=== PATIENT | male | born 1960 | race Caucasian/White ===

== ENCOUNTER 2016-09-04 05:51 | Inpatient (IN) | payer OTHER, MEDICAID ==
[~2016-09-04] VITALS: Ht 177.8 cm; Wt 140.6 kg
[2016-09-04] MEDS ORDERED: CALC600T12 PO (06:15)
[2016-09-04] MEDS ORDERED: FISH1CAP16 PO (06:15)
[2016-09-04] MEDS ORDERED: CITA40TA22 PO (06:15)
[2016-09-04] MEDS ORDERED: ATOR40TA PO (06:15)
[2016-09-04] MEDS ORDERED: DIPH25TA39 PO (06:15)
[2016-09-04] MEDS ORDERED: PANT40TA4 PO (06:15)
[2016-09-04] MEDS ORDERED: BUPR300T52 PO (06:15)
[2016-09-04] MEDS ORDERED: METF10002 PO (06:15)
[2016-09-04] MEDS ORDERED: FENO145T20 PO (06:15)
[2016-09-04] MEDS ORDERED: ZOLP10TA2 PO (06:15)
[2016-09-04] MEDS ORDERED: ZIPR80CA2 PO (06:15)
[2016-09-04] MEDS ORDERED: VALS320T2 PO (06:15)
[2016-09-04 06:31] LABS: BASOPHILS % (AUTO) 0.7 % (0.0-2.0); DIFF TOTAL % 100 %; EOSINOPHILS # (AUTO) 0.4 /CMM (0.0-0.7); EOSINOPHILS % (AUTO) 5.3 % (0.0-6.0); HEMATOCRIT 32 % (39-51); HEMOGLOBIN 10.9 g/dL (13.5-17.5); LYMPHOCYTES # (AUTO) 1.7 /CMM (0.8-4.8); LYMPHOCYTES % (AUTO) 25.4 % (20.0-44.0); MEAN CORPUSCULAR HEMOGLOBIN 29 PG (26.0-33.0); MEAN CORPUSCULAR HGB CONC 34 g/dl (31.0-36.0); MEAN CORPUSCULAR VOLUME 84 fL (80-96); MONOCYTES # (AUTO) 0.7 /CMM (0.1-1.30); MONOCYTES % (AUTO) 9.9 % (2.0-12.0); NEUTROPHILS # (AUTO) 3.9 /CMM (1.8-8.9); NEUTROPHILS % (AUTO) 58.7 % (43.0-81.0); PLATELET COUNT (AUTO) 248 /CMM (150-450); RED BLOOD CELL COUNT(AUTO) 3.81 MIL/uL (4.5-6.0); WHITE BLOOD COUNT (AUTO) 6.7 K/uL (4.3-11.0)
[2016-09-04 06:40] LABS: ANION GAP 8 (5-14); CALCIUM, SERUM 9.5 mg/dL (8.5-10.1); CARBON DIOXIDE 30 mmol/L (21-32); CHLORIDE 97 mmol/L (98-107); CREATININE 1.2 mg/dL (0.6-1.3); GFR 62 mL/min (>60); GLUCOSE 134 mg/dL (74-106); POTASSIUM 4.6 mmol/L (3.5-5.1); SODIUM SERUM 130 mmol/L (136-145); UREA NITROGEN, BLOOD 21 mg/dL (7-18)
[2016-09-04 06:45] LABS: ALANINE AMINOTRANSFERASE 37 U/L (12-78); ALBUMIN 3.7 g/dL (3.4-5.0); ASPARTATE AMINOTRANSFERASE 15 U/L (15-37); BILIRUBIN,DIRECT 0.1 mg/dL (0.0-0.2); BILIRUBIN,TOTAL 0.3 mg/dL (0.2-1.0); INDIRECT BILIRUBIN 0.2 mg/dL (0.0-1.1); TOTAL PROTEIN, SERUM 6.5 g/dL (6.4-8.2)
[2016-09-04 06:47] LABS: TROPONIN I < 0.017 ng/mL (0.00-0.056)
[2016-09-04 06:49] LABS: INR 0.94 (0.87-1.13); PROTHROMBIN TIME 10.2 SECS (9.5-12.7)
[2016-09-04] MEDS ORDERED: ASPIRIN 325 MG TABLET ONE (07:27)
[2016-09-04] MEDS ORDERED: ASPIRIN 325 MG TABLET PO ONE (07:30)
[2016-09-04 08:00] VITALS: BP 138/71
[2016-09-04 08:30] VITALS: BP 138/71
[2016-09-04] MEDS ORDERED: INSULIN REGULAR, HUMAN 100 UNIT/ML 3 ML VIAL SQ PRN (11:30)
[2016-09-04] MEDS ORDERED: DIPHENHYDRAMINE HCL 12.5 MG/5 ML UDC PO PRN (11:30)
[2016-09-04] MEDS ORDERED: DEXTROSE 50%-WATER 50 ML DISP.SYRIN IV PRN (11:30)
[2016-09-04 11:37] LABS: CANNABINOID, URINE NEGATIVE (NEGATIVE); PHENCYCLIDINE SCREEN,URINE NEGATIVE (NEGATIVE)
[2016-09-04 11:42] LABS: THYROID STIMULATING HORMONE 1.494 uIU/mL (0.358-3.74)
[2016-09-04] MEDS ORDERED: diphenhydrAMINE HCL ELIX 25 MG/10 ML UDC PO PRN (12:00)
[2016-09-04 12:04] VITALS: BP 143/72
[2016-09-04] MEDS: CITALOPRAM HYDROBROMIDE 20 MG TABLET PO SCH (12:46)
[2016-09-04] MEDS: BLOOD SUGAR DIAGNOSTIC 1 EACH STRIP IN SCH ×3 (12:47→21:23)
[2016-09-04] MEDS: BUPROPION XL 150 MG TAB.ER.24 PO SCH (12:47)
[2016-09-04] MEDS: ENOXAPARIN SODIUM 40 MG/0.4 ML DISP.SYRIN SQ SCH (12:48)
[2016-09-04] MEDS: VALSARTAN 80 MG TABLET PO SCH (15:05)
[2016-09-04 16:00] VITALS: BP 137/75
[2016-09-04] MEDS: METFORMIN 500 MG TABLET PO SCH (17:24)
[2016-09-04] MEDS ORDERED: ZIPRASIDONE 20 MG CAPSULE PO SCH (18:00)
[2016-09-04 20:00] VITALS: BP 126/67
[2016-09-04] MEDS ORDERED: ZOLPIDEM TARTRATE 10 MG TABLET PO SCH (22:00)
[2016-09-05 00:28] VITALS: BP 126/67
[2016-09-05 04:00] VITALS: BP 132/68
[2016-09-05] MEDS: BLOOD SUGAR DIAGNOSTIC 1 EACH STRIP IN SCH ×2 (06:48→11:29)
[2016-09-05 06:58] LABS: BASOPHILS % (AUTO) 0.5 % (0.0-2.0); DIFF TOTAL % 100 %; EOSINOPHILS # (AUTO) 0.3 /CMM (0.0-0.7); EOSINOPHILS % (AUTO) 4.4 % (0.0-6.0); HEMATOCRIT 36 % (39-51); HEMOGLOBIN 12.1 g/dL (13.5-17.5); LYMPHOCYTES # (AUTO) 1.6 /CMM (0.8-4.8); LYMPHOCYTES % (AUTO) 25.9 % (20.0-44.0); MEAN CORPUSCULAR HEMOGLOBIN 28 PG (26.0-33.0); MEAN CORPUSCULAR HGB CONC 34 g/dl (31.0-36.0); MEAN CORPUSCULAR VOLUME 85 fL (80-96); MONOCYTES # (AUTO) 0.6 /CMM (0.1-1.30); MONOCYTES % (AUTO) 9.8 % (2.0-12.0); NEUTROPHILS # (AUTO) 3.7 /CMM (1.8-8.9); NEUTROPHILS % (AUTO) 59.4 % (43.0-81.0); PLATELET COUNT (AUTO) 250 /CMM (150-450); RED BLOOD CELL COUNT(AUTO) 4.28 MIL/uL (4.5-6.0); WHITE BLOOD COUNT (AUTO) 6.2 K/uL (4.3-11.0)
[2016-09-05 07:21] LABS: INR 0.99 (0.87-1.13); PROTHROMBIN TIME 10.7 SECS (9.5-12.7)
[2016-09-05 07:40] LABS: CALCIUM, SERUM 9.5 mg/dL (8.5-10.1); CREATININE 1.2 mg/dL (0.6-1.3); POTASSIUM 4.6 mmol/L (3.5-5.1)
[2016-09-05 08:00] VITALS: BP 145/82
[2016-09-05] MEDS: BUPROPION XL 150 MG TAB.ER.24 PO SCH (08:37)
[2016-09-05] MEDS: CITALOPRAM HYDROBROMIDE 20 MG TABLET PO SCH (08:37)
[2016-09-05] MEDS: VALSARTAN 80 MG TABLET PO SCH (08:38)
[2016-09-05] MEDS: METFORMIN 500 MG TABLET PO SCH (08:38)
[2016-09-05] MEDS ORDERED: ASPIRIN EC 81 MG TABLET.DR PO SCH (09:00)
[2016-09-05] MEDS ORDERED: CALCIUM CARBONATE 500 MG TAB.CHEW PO SCH (09:00)
[2016-09-05] MEDS ORDERED: FENOFIBRATE NANOCRYS (145 MG) 145 MG TABLET PO SCH (09:00)
[2016-09-05] MEDS ORDERED: PANTOPRAZOLE 40 MG/PACK PACK PO SCH (09:00)
[2016-09-05] MEDS ORDERED: VALSARTAN 80 MG TABLET PO SCH ×2 (09:00)
[2016-09-05] MEDS ORDERED: ATORVASTATIN 40 MG TABLET PO SCH (09:00)
[2016-09-05] MEDS: ENOXAPARIN SODIUM 40 MG/0.4 ML DISP.SYRIN SQ SCH (11:24)
[2016-09-05 16:00] VITALS: BP 123/59
== END 2016-09-05 18:41 | disposition home or self-care (01) | DRG 73 ==
LOC: ER 05:56 → TELE1 07:30 → MEDSG1 09:08
PROVIDERS: ADMIT Nurse Practitioner Acute Care; ATTEND Nurse Practitioner Acute Care
DX: G58.9 Mononeuropathy, unspecified (principal); E43 Unspecified severe protein-calorie malnutrition; Z68.41 Body mass index [BMI] 40.0-44.9, adult; E78.5 Hyperlipidemia, unspecified; I10 Essential (primary) hypertension; K21.9 Gastro-esophageal reflux disease without esophagitis; G47.33 Obstructive sleep apnea (adult) (pediatric); G89.29 Other chronic pain; F25.9 Schizoaffective disorder, unspecified; F32.9 Major depressive disorder, single episode, unspecified; F41.9 Anxiety disorder, unspecified; E11.9 Type 2 diabetes mellitus without complications; E66.9 Obesity, unspecified; Z79.84 Long term (current) use of oral hypoglycemic drugs
CPT/HCPCS: 36415; 70450-TC; 70551-TC; 71010-TC; 80048-TC; 80061-TC; 80076-TC; 80305; 82962-TC; 83880; 84443-TC; 84484-TC; 85025-TC; 85652-TC; 85730-TC; 87081-TC; 92611-TC; 93307-TC; 93880-TC; 97001-TC; 97003-TC; A4606; J1650; J1815; Q0163; Z7610

== ENCOUNTER 2021-09-29 09:03 | Emergency (ER) | payer OTHER ==
[~2021-09-29 09:03] MED LIST: ATOR40TA PO; BUPR300T52 PO; CALC-1143 PO; CITA40TA22 PO; FENO145T21 PO; FISH1CAP16 PO; METF-442 PO; PANT40TA49 PO; VALS320T2 PO; ZIPR80CA2 PO; ZOLP10TA2 PO
--- NOTE | 2021-09-29 09:21 | NUR ---
CALLED DR. RAMÍREZ [phone] [facility] FOR [facility] CARE MANAGER UNABLE TO LEAVE .
[2021-09-29 09:36] LABS: BASOPHILS # (AUTO) 0.1 K/uL (0.0-0.2); EOSINOPHILS % (AUTO) 3.8 % (0.0-6.0); HEMATOCRIT 32 % (39-51); HEMOGLOBIN 10.4 g/dL (13.5-17.5); LYMPHOCYTES % (AUTO) 14.2 % (20.0-44.0); MEAN CORPUSCULAR HGB CONC 32 g/dl (31.0-36.0); MEAN CORPUSCULAR VOLUME 86 fL (80-96); MONOCYTES # (AUTO) 0.5 K/uL (0.1-1.30); MONOCYTES % (AUTO) 6.8 % (2.0-12.0); NEUTROPHILS # (AUTO) 5.1 K/uL (1.8-8.9); NEUTROPHILS % (AUTO) 74.2 % (43.0-81.0); PLATELET COUNT (AUTO) 200 K/uL (150-450); RED BLOOD CELL COUNT(AUTO) 3.75 MIL/uL (4.5-6.0); WHITE BLOOD COUNT (AUTO) 6.8 K/uL (4.3-11.0)
[2021-09-29 09:47] VITALS: BP 149/78
[2021-09-29 09:56] LABS: CALCIUM, SERUM 8.8 mg/dL (8.5-10.1); CREATININE 0.7 mg/dL (0.6-1.3); POTASSIUM 4.9 mmol/L (3.5-5.1)
[2021-09-29 11:28] LABS: BILIRUBIN,URINE SMALL (NEGATIVE); COLOR,URINE AMBER (YELLOW); LEUKOCYTE ESTERASE ,URINE MODERATE (NEGATIVE); NITRITE, URINE POSITIVE (NEGATIVE); PROTEIN,URINE 100 mg/dl (NEGATIVE); UGLUCOSE NEGATIVE (NEGATIVE)
[2021-09-29 11:49] LABS: BACTERIA,URINE Few /HPF (None Seen); RBC,URINE TOO NUMEROUS TO COUN /HPF (0-2); SQUAMOUS EPITHELIAL CELL,UR Few /HPF (None Seen)
[2021-09-29] MEDS ORDERED: CEFTRIAXONE 1 G in IV D5W 50 ML IV ONE (12:00)
--- NOTE | 2021-09-29 12:16 | NUR ---
CALLED UROLOGY DR. SOOD [phone] LEFT VM
[2021-09-29] MEDS ORDERED: CIPR-262 PO (12:19)
[2021-09-29] MEDS ORDERED: CEFTRIAXONE 1GM BAG (ER ONLY) 50 ML IV ONE (12:25)
--- NOTE | 2021-09-29 12:34 | NUR ---
IV CANNULA INSERTED ON LEFT HAND USING G20. IV ROCEPHINE GIVEN. END TIME 1305
== END 2021-09-29 13:02 | disposition home or self-care (01) ==
LOC: ER 09:21
DX: N39.0 Urinary tract infection, site not specified (principal); R31.9 Hematuria, unspecified; I10 Essential (primary) hypertension; E11.9 Type 2 diabetes mellitus without complications; F20.9 Schizophrenia, unspecified; Z91.040 Latex allergy status; Z79.84 Long term (current) use of oral hypoglycemic drugs; Z79.899 Other long term (current) drug therapy
CPT/HCPCS: 36415; 80048; 81001; 85025; 85730; 87077; 87086; 87186 ×2; 96365; 99284; J0696 ×2; J7060

== ENCOUNTER 2022-01-13 23:19 | Emergency (ER) | payer MEDICARE, OTHER ==
[~2022-01-13] VITALS: Ht 177.8 cm; Wt 167.8 kg
[~2022-01-13 23:19] MED LIST changes: +CIPR-262 PO
[2022-01-13] MEDS ORDERED: LIDOCAINE 2% JEL UROJET 10 ML MM ONE (23:29)
[2022-01-13 23:32] VITALS: BP 151/94
--- NOTE | 2022-01-14 00:10 | NUR ---
BLANCA SWITCHED TO LEG BAG.
--- NOTE | 2022-01-14 00:15 | NUR ---
PT OK TO DISCHARGE PER DR CHAVARRIA. Patient discharged to home in stable condition. Written and verbal after care instructions given. Patient verbalizes understanding of instruction.Patient is awake and alert to self, day, and place. PT ambulatory with a steady gait
== END 2022-01-14 00:17 | disposition home or self-care (01) ==
LOC: ER 23:26
DX: R33.9 Retention of urine, unspecified (principal); I10 Essential (primary) hypertension; E11.9 Type 2 diabetes mellitus without complications; Z88.8 Allergy status to other drugs, medicaments and biological substances; Z79.899 Other long term (current) drug therapy
CPT/HCPCS: 99284; 51702; J3490

== ENCOUNTER 2022-01-19 06:41 | Emergency (ER) | payer MEDICARE, OTHER ==
[~2022-01-19] VITALS: Ht 177.8 cm; Wt 167.8 kg
[2022-01-19] MEDS ORDERED: LIDOCAINE 2% JEL UROJET 10 ML MM ONE (06:50)
[2022-01-19 07:18] VITALS: BP 155/98
--- NOTE | 2022-01-19 07:18 | NUR ---
Patient discharged to home in stable condition. Written and verbal after care instructions given. Patient verbalizes understanding of instruction.
== END 2022-01-19 07:19 | disposition home or self-care (01) ==
LOC: ER 06:55
DX: R33.9 Retention of urine, unspecified (principal); R10.2 Pelvic and perineal pain; I10 Essential (primary) hypertension; E11.9 Type 2 diabetes mellitus without complications; Z88.8 Allergy status to other drugs, medicaments and biological substances; Z60.2 Problems related to living alone; Z79.899 Other long term (current) drug therapy; Z79.84 Long term (current) use of oral hypoglycemic drugs
CPT/HCPCS: 99284; 51702; J3490

== ENCOUNTER 2022-01-20 02:50 | Emergency (ER) | payer MEDICARE, OTHER ==
[~2022-01-20] VITALS: Ht 177.8 cm; Wt 170.1 kg
--- NOTE | 2022-01-20 03:10 | NUR ---
BIB 878 C/O LOST BALANCE AND GLF. -HEAD TRAUMA. -LOC -DEFORMITIES. PT A/OX4.. PT TOLERATING R/A WELL WITH NO RESP DISTRESS. SAFETY MEASURES IN PLACE.
[2022-01-20] MEDS ORDERED: ONDANSETRON 4 MG TAB.RAPDIS ONE (03:24)
[2022-01-20] MEDS ORDERED: ONDANSETRON HCL/PF 4 MG/2 ML VIAL ONE ×2 (03:27→08:47)
[2022-01-20] MEDS: ONDANSETRON HCL/PF - ER 4 MG/2 ML VIAL IM ONE (03:30)
[2022-01-20] MEDS: ONDANSETRON 4 MG TAB.RAPDIS SL ONE (03:31)
--- NOTE | 2022-01-20 03:33 | NUR ---
PT BEING TRANSPORTED TO CT VIA [facility]
[2022-01-20] MEDS: HYDROMORPHONE HCL 2 MG TABLET PO PRN ×2 (03:40→04:43)
[2022-01-20] MEDS ORDERED: HYDROMORPHONE HCL 2 MG TABLET ONE ×2 (03:41→04:40)
--- NOTE | 2022-01-20 03:42 | NUR ---
PT RETURNED TO ER BED [address]
--- NOTE | 2022-01-20 03:48 | NUR ---
GRAPHICS COORDINATOR AT PT'S BEDSIDE
--- NOTE | 2022-01-20 03:48 | NUR ---
RAC #20G S/L BLOOD AND COVID ANTIGEN SWAB COLLECTED AND SENT TO LAB
--- NOTE | 2022-01-20 03:50 | NUR ---
CRISELDA COLLECTED AND SENT TO LAB
[2022-01-20 04:32] LABS: BASOPHILS % (AUTO) 0.4 % (0.0-2.0); EOSINOPHILS % (AUTO) 0.5 % (0.0-6.0); HEMATOCRIT 36 % (39-51); HEMOGLOBIN 12.2 g/dL (13.5-17.5); LYMPHOCYTES # (AUTO) 1.5 K/uL (0.8-4.8); MEAN CORPUSCULAR HGB CONC 34 g/dl (31.0-36.0); MEAN CORPUSCULAR VOLUME 83 fL (80-96); MONOCYTES # (AUTO) 0.6 K/uL (0.1-1.30); MONOCYTES % (AUTO) 7.1 % (2.0-12.0); NEUTROPHILS # (AUTO) 6.6 K/uL (1.8-8.9); PLATELET COUNT (AUTO) 230 K/uL (150-450); WHITE BLOOD COUNT (AUTO) 8.8 K/uL (4.3-11.0)
[2022-01-20 04:45] LABS: CALCIUM, SERUM 9.3 mg/dL (8.5-10.1); CARBON DIOXIDE 29 mmol/L (21-32); CHLORIDE 88 mmol/L (98-107); CREATININE 1.1 mg/dL (0.6-1.3); GLUCOSE 113 mg/dL (74-106); SODIUM SERUM 123 mmol/L (136-145); UREA NITROGEN, BLOOD 19 mg/dL (7-18)
[2022-01-20 04:59] LABS: ALANINE AMINOTRANSFERASE 42 U/L (12-78); ALKALINE PHOSPHATASE 80 U/L (46-116); ASPARTATE AMINOTRANSFERASE 22 U/L (15-37); BILIRUBIN,DIRECT 0.1 mg/dL (0.0-0.2); BILIRUBIN,TOTAL 0.4 mg/dL (0.2-1.0); TOTAL PROTEIN, SERUM 7.6 g/dL (6.4-8.2)
[2022-01-20] MEDS ORDERED: METOCLOPRAMIDE HCL 10 MG/2 ML VIAL ONE (05:17)
[2022-01-20] MEDS: METOCLOPRAMIDE HCL 10 MG/2 ML VIAL IV ONE (05:25)
[2022-01-20] MEDS: ONDANSETRON HCL/PF 4 MG/2 ML VIAL IVP ONE (08:50)
--- NOTE | 2022-01-20 08:59 | NUR ---
The patient is alert and oriented x4. In room air and denies SOB. Respiration regular and unlabored. The patient denies pain. IV removed. Catheter intact and site benign. Pressure and 4x4 applied to site. No bleeding noted.Patient discharged to home in stable condition. Written and verbal after care instructions given. Patient verbalizes understanding of instruction.
[2022-01-20 09:00] VITALS: BP 131/82
== END 2022-01-20 09:02 | disposition home or self-care (01) ==
LOC: ER 02:59
DX: R51.9 Headache, unspecified (principal); R53.1 Weakness; R26.2 Difficulty in walking, not elsewhere classified; R42 Dizziness and giddiness; E66.01 Morbid (severe) obesity due to excess calories; Z68.43 Body mass index [BMI] 50.0-59.9, adult; G89.4 Chronic pain syndrome; Z91.041 Radiographic dye allergy status; Z80.9 Family history of malignant neoplasm, unspecified; Z79.899 Other long term (current) drug therapy; Z88.5 Allergy status to narcotic agent; R33.9 Retention of urine, unspecified; I45.10 Unspecified right bundle-branch block; R94.31 Abnormal electrocardiogram [ECG] [EKG]; Z91.81 History of falling
CPT/HCPCS: 99285; 96374; 70450; 71045; 96375; 87426; 93005; 85025; 80048; 80076; 36415; 84484 ×2; 85730; 96372; J2765; J2405 ×3; Q0162; C9803

== ENCOUNTER 2023-07-08 21:36 | Inpatient (IN) | payer OTHER ==
[~2023-07-08] VITALS: Ht 177.8 cm; Wt 177.4 kg
[~2023-07-08 21:36] MED LIST changes: -BUPR300T52 PO; -CALC-1143 PO; +CEPH500C2 PO; -CIPR-262 PO; -CITA40TA22 PO; +DOCU-141 PO; -FENO145T21 PO; -FISH1CAP16 PO; +FURO-144 PO; +INSU100I14 SQ; +INSU300I3 SQ; +METF-440 PO; -METF-442 PO; +METO25TA20 PO; +OLME20TA13 PO; +OXYC-128 PO; +PANT20TA17 PO; -PANT40TA49 PO; +POLY17PO4 PO; -VALS320T2 PO; -ZOLP10TA2 PO
[2023-07-08 22:00] LABS: BASOPHILS # (AUTO) 0.1 K/uL (0.0-0.2); BASOPHILS % (AUTO) 0.6 % (0.0-2.0); EOSINOPHILS % (AUTO) 0.2 % (0.0-6.0); HEMATOCRIT 41 % (39-51); HEMOGLOBIN 13.5 g/dL (13.5-17.5); LYMPHOCYTES # (AUTO) 1.7 K/uL (0.8-4.8); LYMPHOCYTES % (AUTO) 14.9 % (20.0-44.0); MEAN CORPUSCULAR HEMOGLOBIN 28 PG (26.0-33.0); MEAN CORPUSCULAR HGB CONC 33 g/dl (31.0-36.0); MEAN CORPUSCULAR VOLUME 84 fL (80-96); MONOCYTES # (AUTO) 0.5 K/uL (0.1-1.30); MONOCYTES % (AUTO) 4.8 % (2.0-12.0); NEUTROPHILS # (AUTO) 8.9 K/uL (1.8-8.9); NEUTROPHILS % (AUTO) 79.5 % (43.0-81.0); PLATELET COUNT (AUTO) 284 K/uL (150-450); RED BLOOD CELL COUNT(AUTO) 4.87 MIL/uL (4.5-6.0); RED CELL DISTRIBUTION WIDTH 17.4 % (11.5-15.0); WHITE BLOOD COUNT (AUTO) 11.3 K/uL (4.3-11.0)
[2023-07-08] MEDS ORDERED: NITROGLYCERIN 0.4 MG/TAB BOTTLE ONE (22:29)
[2023-07-08] MEDS ORDERED: ONDANSETRON HCL/PF 4 MG/2 ML VIAL ONE ×2 (22:29→23:49)
[2023-07-08] MEDS ORDERED: ASPIRIN 325 MG TABLET ONE (22:29)
[2023-07-08 22:30] LABS: CARBON DIOXIDE 25 mmol/L (21-32); CHLORIDE 86 mmol/L (98-107); CREATININE 1.1 mg/dL (0.6-1.3); GLUCOSE 162 mg/dL (74-106); POTASSIUM 4.8 mmol/L (3.5-5.1); SODIUM SERUM 123 mmol/L (136-145); UREA NITROGEN, BLOOD 19 mg/dL (7-18)
[2023-07-08] MEDS ORDERED: ASPIRIN 325 MG TABLET PO ONE (22:30)
[2023-07-08] MEDS ORDERED: NITROGLYCERIN 0.4 MG/TAB BOTTLE SL ONE (22:30)
[2023-07-08] MEDS ORDERED: ONDANSETRON HCL/PF 4 MG/2 ML VIAL IV ONE ×2 (22:30→23:30)
[2023-07-08 22:41] LABS: NT-PRO BNP 37 pg/mL (0-125)
[2023-07-09] MEDS ORDERED: DEXTROSE 50%-WATER 50 ML DISP.SYRIN IV PRN ×2 (03:00→16:30)
[2023-07-09] MEDS ORDERED: ZOLPIDEM TARTRATE 5 MG TABLET PO PRN (03:00)
[2023-07-09] MEDS ORDERED: MAGNESIUM HYDROXIDE 30 ML UDC PO PRN (03:00)
[2023-07-09] MEDS ORDERED: IV NS 0.9% 1,000 ML IV ONE (03:00)
[2023-07-09] MEDS ORDERED: NITROGLYCERIN 0.4 MG/TAB BOTTLE SL ONE (03:00)
[2023-07-09] MEDS ORDERED: Z GUARD REMEDY 4 OZ OINT TP PRN (03:00)
[2023-07-09] MEDS ORDERED: MAG HYDROX/AL HYDROX/SIMETH 30 ML UDC PO PRN (03:00)
[2023-07-09] MEDS ORDERED: ACETAMINOPHEN 325 MG TABLET PO PRN (03:00)
[2023-07-09] MEDS: ONDANSETRON HCL/PF 4 MG/2 ML VIAL IVP PRN ×4 (05:11→21:08)
[2023-07-09] MEDS: PANTOPRAZOLE 40 MG TABLET.DR PO SCH (07:54)
[2023-07-09 08:00] VITALS: BP 144/117; TEMP 98.2; O2SAT 99
[2023-07-09] MEDS: BLOOD SUGAR DIAGNOSTIC 1 EACH STRIP IN SCH ×6 (08:05→22:26)
[2023-07-09] MEDS: INSULIN REGULAR, HUMAN 100 UNIT/ML 3 ML VIAL SQ PRN ×2 (08:09→12:34)
[2023-07-09] MEDS ORDERED: ENOXAPARIN SODIUM 30 MG/0.3 ML DISP.SYRIN SQ SCH (09:00)
[2023-07-09 09:09] LABS: BASOPHILS % (AUTO) 0.4 % (0.0-2.0); EOSINOPHILS # (AUTO) 0.1 K/uL (0.0-0.7); EOSINOPHILS % (AUTO) 0.6 % (0.0-6.0); HEMATOCRIT 38 % (39-51); HEMOGLOBIN 12.8 g/dL (13.5-17.5); LYMPHOCYTES # (AUTO) 1.9 K/uL (0.8-4.8); LYMPHOCYTES % (AUTO) 18.2 % (20.0-44.0); MEAN CORPUSCULAR HEMOGLOBIN 28 PG (26.0-33.0); MEAN CORPUSCULAR HGB CONC 34 g/dl (31.0-36.0); MEAN CORPUSCULAR VOLUME 83 fL (80-96); MONOCYTES # (AUTO) 0.8 K/uL (0.1-1.30); MONOCYTES % (AUTO) 7.6 % (2.0-12.0); NEUTROPHILS # (AUTO) 7.6 K/uL (1.8-8.9); NEUTROPHILS % (AUTO) 73.2 % (43.0-81.0); PLATELET COUNT (AUTO) 244 K/uL (150-450); RED CELL DISTRIBUTION WIDTH 17.5 % (11.5-15.0); WHITE BLOOD COUNT (AUTO) 10.4 K/uL (4.3-11.0)
[2023-07-09] MEDS ORDERED: BUPR-319 PO (09:09)
[2023-07-09] MEDS ORDERED: INSU300I SQ (09:09)
[2023-07-09] MEDS ORDERED: ICOS1CAP PO (09:09)
[2023-07-09] MEDS ORDERED: DICL100G34 TOP (09:09)
[2023-07-09] MEDS ORDERED: ZOLP10TA2 PO (09:09)
[2023-07-09] MEDS: ASPIRIN 81 MG TAB.CHEW PO SCH (09:21)
[2023-07-09] MEDS ORDERED: Medication Not On Formulary EA (Icosapent Ethyl (Vascepa) 2 GM) PO SCH (09:30)
[2023-07-09] MEDS ORDERED: NITROGLYCERIN 0.4 MG/TAB BOTTLE SL PRN (09:30)
[2023-07-09 09:40] LABS: THYROID STIMULATING HORMONE 2.195 uIU/mL (0.358-3.74)
[2023-07-09 09:49] LABS: CALCIUM, SERUM 9.1 mg/dL (8.5-10.1); CREATININE 1.1 mg/dL (0.6-1.3); MAGNESIUM 1.6 mg/dL (1.8-2.4); POTASSIUM 4.3 mmol/L (3.5-5.1)
[2023-07-09] MEDS ORDERED: ENOXAPARIN SODIUM 40 MG/0.4 ML DISP.SYRIN SQ SCH (10:00)
[2023-07-09] MEDS: METFORMIN 500 MG TABLET PO SCH ×2 (10:01→18:45)
[2023-07-09] MEDS: METOPROLOL TARTRATE 25 MG TABLET PO SCH ×2 (10:06→21:07)
[2023-07-09 12:00] VITALS: BP 118/74; TEMP 99.3; O2SAT 99
[2023-07-09] MEDS ORDERED: KETOROLAC TROMETHAMINE 15 MG/ML VIAL IV PRN (12:00)
[2023-07-09] MEDS ORDERED: diphenhydrAMINE HCL 50 MG/ML VIAL IV PRN (12:00)
[2023-07-09 16:00] VITALS: BP 124/66; TEMP 98.6; O2SAT 99
[2023-07-09] MEDS ORDERED: INSULIN REGULAR, HUMAN 100 UNIT/ML 3 ML VIAL SQ PRN (16:30)
[2023-07-09 20:00] VITALS: BP 122/60; TEMP 98.2; O2SAT 95
[2023-07-09] MEDS: ZIPRASIDONE 20 MG CAPSULE PO SCH (21:06)
[2023-07-09] MEDS ORDERED: ATORVASTATIN 40 MG TABLET PO SCH (22:00)
[2023-07-09] MEDS ORDERED: KETOROLAC TROMETHAMINE INJ 30 MG/ML VIAL ONE (22:08)
[2023-07-10] VITALS: BP 127/67; TEMP 98; O2SAT 99
[2023-07-10 04:00] VITALS: BP 125/65; TEMP 98.1; O2SAT 98
[2023-07-10 06:43] LABS: BASOPHILS % (AUTO) 0.4 % (0.0-2.0); EOSINOPHILS # (AUTO) 0.2 K/uL (0.0-0.7); EOSINOPHILS % (AUTO) 2.8 % (0.0-6.0); HEMATOCRIT 36 % (39-51); HEMOGLOBIN 12.2 g/dL (13.5-17.5); LYMPHOCYTES # (AUTO) 2.2 K/uL (0.8-4.8); LYMPHOCYTES % (AUTO) 27.1 % (20.0-44.0); MEAN CORPUSCULAR HEMOGLOBIN 29 PG (26.0-33.0); MEAN CORPUSCULAR HGB CONC 34 g/dl (31.0-36.0); MEAN CORPUSCULAR VOLUME 83 fL (80-96); MONOCYTES # (AUTO) 0.7 K/uL (0.1-1.30); MONOCYTES % (AUTO) 9.1 % (2.0-12.0); NEUTROPHILS # (AUTO) 4.9 K/uL (1.8-8.9); NEUTROPHILS % (AUTO) 60.6 % (43.0-81.0); PLATELET COUNT (AUTO) 212 K/uL (150-450); RED BLOOD CELL COUNT(AUTO) 4.27 MIL/uL (4.5-6.0); RED CELL DISTRIBUTION WIDTH 17.5 % (11.5-15.0); WHITE BLOOD COUNT (AUTO) 8.1 K/uL (4.3-11.0)
[2023-07-10] MEDS: PANTOPRAZOLE 40 MG TABLET.DR PO SCH (07:30)
[2023-07-10] MEDS ORDERED: PANTOPRAZOLE 40 MG TABLET.DR PO SCH (07:30)
[2023-07-10] MEDS ORDERED: KETOROLAC TROMETHAMINE INJ 30 MG/ML VIAL IV PRN (07:30)
[2023-07-10] MEDS: BLOOD SUGAR DIAGNOSTIC 1 EACH STRIP IN SCH ×4 (07:30→11:52)
[2023-07-10] MEDS ORDERED: LOSARTAN POTASSIUM 50 MG TABLET PO SCH (09:00)
[2023-07-10] MEDS ORDERED: ENOXAPARIN SODIUM 40 MG/0.4 ML DISP.SYRIN SQ SCH (09:00)
[2023-07-10] MEDS: ZIPRASIDONE 20 MG CAPSULE PO SCH (09:00)
[2023-07-10] MEDS ORDERED: BUPROPION XL 150 MG TAB.ER.24 PO SCH (09:00)
[2023-07-10] MEDS: ASPIRIN 81 MG TAB.CHEW PO SCH (09:04)
[2023-07-10] MEDS: METOPROLOL TARTRATE 25 MG TABLET PO SCH (09:04)
[2023-07-10 09:05] VITALS: BP 119/62
[2023-07-10] MEDS: METFORMIN 500 MG TABLET PO SCH (09:10)
[2023-07-10] MEDS: INSULIN REGULAR, HUMAN 100 UNIT/ML 3 ML VIAL SQ PRN ×2 (09:27→11:54)
== END 2023-07-10 17:47 | disposition home health service (06) | DRG 303 ==
LOC: ER 21:38 → TRANSITION 07-09 03:58 → TELE1 07-09 04:02
DX: I25.10 Atherosclerotic heart disease of native coronary artery without angina pectoris (principal); D68.59 Other primary thrombophilia; E87.1 Hypo-osmolality and hyponatremia; G89.29 Other chronic pain; N31.9 Neuromuscular dysfunction of bladder, unspecified; F25.9 Schizoaffective disorder, unspecified; F41.9 Anxiety disorder, unspecified; I50.9 Heart failure, unspecified; I11.0 Hypertensive heart disease with heart failure; E78.5 Hyperlipidemia, unspecified; Z98.890 Other specified postprocedural states; Z93.51 Cutaneous-vesicostomy status; Z88.5 Allergy status to narcotic agent; Z91.041 Radiographic dye allergy status; Z79.84 Long term (current) use of oral hypoglycemic drugs; Z79.4 Long term (current) use of insulin; Z79.899 Other long term (current) drug therapy; E66.01 Morbid (severe) obesity due to excess calories; G47.33 Obstructive sleep apnea (adult) (pediatric); E11.65 Type 2 diabetes mellitus with hyperglycemia; E11.51 Type 2 diabetes mellitus with diabetic peripheral angiopathy without gangrene; S81.812A Laceration without foreign body, left lower leg, initial encounter; S81.811A Laceration without foreign body, right lower leg, initial encounter; X58.XXXA Exposure to other specified factors, initial encounter; Y92.9 Unspecified place or not applicable; D64.9 Anemia, unspecified; K21.9 Gastro-esophageal reflux disease without esophagitis; Z74.09 Other reduced mobility; G43.909 Migraine, unspecified, not intractable, without status migrainosus
CPT/HCPCS: 36415; 71045-TC; 80048-TC; 80061-TC; 82962-TC; 83735-TC; 83880; 84439-TC; 84443-TC; 84484-TC; 85025-TC; 93307-TC; 97116-TC; 97530-TC; A4223; G0378; J1200; J1650; J1815; J1885; J2405; J7030

== ENCOUNTER 2023-09-25 15:59 | Inpatient (IN) | payer OTHER ==
[~2023-09-25] VITALS: Ht 180.3 cm; Wt 181.4 kg
[~2023-09-25 15:59] MED LIST changes: +BUPR-319 PO; -CEPH500C2 PO; +DICL100G34 TP; -DOCU-141 PO; +ICOS1CAP PO; +INSU300I SQ; -OXYC-128 PO; -POLY17PO4 PO; +ZOLP10TA2 PO
[2023-09-25 16:39] LABS: BASOPHILS # (AUTO) 0.1 K/uL (0.0-0.2); BASOPHILS % (AUTO) 0.7 % (0.0-2.0); EOSINOPHILS # (AUTO) 0.1 K/uL (0.0-0.7); EOSINOPHILS % (AUTO) 0.8 % (0.0-6.0); HEMATOCRIT 34 % (39-51); HEMOGLOBIN 11.4 g/dL (13.5-17.5); LYMPHOCYTES # (AUTO) 2.3 K/uL (0.8-4.8); LYMPHOCYTES % (AUTO) 16.2 % (20.0-44.0); MEAN CORPUSCULAR HEMOGLOBIN 28 PG (26.0-33.0); MEAN CORPUSCULAR HGB CONC 33 g/dl (31.0-36.0); MEAN CORPUSCULAR VOLUME 83 fL (80-96); MONOCYTES # (AUTO) 0.9 K/uL (0.1-1.30); MONOCYTES % (AUTO) 6.4 % (2.0-12.0); NEUTROPHILS # (AUTO) 10.8 K/uL (1.8-8.9); NEUTROPHILS % (AUTO) 75.9 % (43.0-81.0); PLATELET COUNT (AUTO) 335 K/uL (150-450); RED BLOOD CELL COUNT(AUTO) 4.13 MIL/uL (4.5-6.0); RED CELL DISTRIBUTION WIDTH 16.6 % (11.5-15.0); WHITE BLOOD COUNT (AUTO) 14.3 K/uL (4.3-11.0)
[2023-09-25] MEDS ORDERED: METOCLOPRAMIDE HCL 10 MG/2 ML VIAL ONE (16:41)
[2023-09-25] MEDS ORDERED: KETOROLAC TROMETHAMINE 15 MG/ML VIAL ONE (16:43)
[2023-09-25 16:46] LABS: CARBON DIOXIDE 27 mmol/L (21-32); CHLORIDE 86 mmol/L (98-107); GLUCOSE 142 mg/dL (74-106); POTASSIUM 4.2 mmol/L (3.5-5.1); SODIUM SERUM 121 mmol/L (136-145); UREA NITROGEN, BLOOD 22 mg/dL (7-18)
[2023-09-25] MEDS ORDERED: NITROGLYCERIN 0.4 MG/TAB BOTTLE ONE (16:48)
[2023-09-25] MEDS: NITROGLYCERIN 0.4 MG/TAB BOTTLE SL ONE (16:57)
[2023-09-25] MEDS ORDERED: METF-442 PO (16:58)
[2023-09-25] MEDS ORDERED: CHLO473M2 MM (16:58)
[2023-09-25] MEDS: METOCLOPRAMIDE HCL 10 MG/2 ML VIAL IV ONE (16:58)
[2023-09-25] MEDS ORDERED: METO25TA6 PO (16:58)
[2023-09-25] MEDS ORDERED: BACL10TA PO (16:58)
[2023-09-25] MEDS ORDERED: INSU100I14 SQ (16:58)
[2023-09-25] MEDS ORDERED: FESO4TAB PO (16:58)
[2023-09-25 16:59] LABS: NT-PRO BNP 119 pg/mL (0-125)
[2023-09-25] MEDS: KETOROLAC TROMETHAMINE 15 MG/ML VIAL IV ONE (17:00)
[2023-09-25] MEDS: IV NS 0.9% 1,000 ML BAG IV ONE (17:01)
[2023-09-25] MEDS ORDERED: SUMATRIPTAN SUCCINATE 6 MG/0.5 ML VIAL SQ ONE (17:02)
[2023-09-25] MEDS: SUMATRIPTAN SUCCINATE 6 MG/0.5 ML VIAL SQ ONE (17:03)
[2023-09-25] MEDS ORDERED: ONDANSETRON HCL/PF 4 MG/2 ML VIAL ONE (17:55)
[2023-09-25] MEDS: ONDANSETRON HCL/PF - ER 4 MG/2 ML VIAL IV ONE (18:00)
[2023-09-25] MEDS ORDERED: HYDROMORPHONE INJ 2 MG/ML DISP.SYRIN ONE (18:36)
[2023-09-25] MEDS: HYDROMORPHONE INJ 2 MG/ML DISP.SYRIN IV ONE (18:43)
[2023-09-25] MEDS ORDERED: PROCHLORPERAZINE EDISYLATE 10 MG/2 ML VIAL ONE (19:56)
[2023-09-25] MEDS ORDERED: diphenhydrAMINE HCL 50 MG/ML VIAL ONE (19:56)
[2023-09-25] MEDS: PROCHLORPERAZINE EDISYLATE 10 MG/2 ML VIAL IVP ONE (20:03)
[2023-09-25] MEDS: diphenhydrAMINE HCL 50 MG/ML VIAL IV ONE (20:03)
[2023-09-25 21:30] VITALS: BP 120/63; TEMP 98.2; O2SAT 97
[2023-09-25] MEDS ORDERED: MAG HYDROX/AL HYDROX/SIMETH 30 ML UDC PO PRN (23:00)
[2023-09-25] MEDS ORDERED: MAGNESIUM HYDROXIDE 30 ML UDC PO PRN (23:00)
[2023-09-25] MEDS: ONDANSETRON HCL/PF 4 MG/2 ML VIAL IVP PRN (23:25)
[2023-09-25] MEDS: ENOXAPARIN SODIUM 40 MG/0.4 ML DISP.SYRIN SQ SCH (23:25)
[2023-09-25] MEDS ORDERED: ZOLPIDEM TARTRATE 10 MG TABLET PO PRN (23:30)
[2023-09-25] MEDS: ASPIRIN 81 MG TAB.CHEW PO SCH (23:31)
[2023-09-26] VITALS (7 sets, daily range): BP systolic 117–156; BP diastolic 50–76; TEMP 97.2–98.7; O2SAT 94–99
[2023-09-26] MEDS ORDERED: DEXTROSE 50%-WATER 50 ML DISP.SYRIN IV PRN
[2023-09-26] MEDS: ZOLPIDEM TARTRATE 5 MG TABLET PO PRN (00:17)
[2023-09-26] MEDS: IV NS 0.9% 1,000 ML IV PRN (02:39)
[2023-09-26] MEDS: KETOROLAC TROMETHAMINE INJ 30 MG/ML VIAL IV PRN (05:35)
[2023-09-26 06:44] LABS: BASOPHILS % (AUTO) 0.3 % (0.0-2.0); EOSINOPHILS # (AUTO) 0.1 K/uL (0.0-0.7); EOSINOPHILS % (AUTO) 1.4 % (0.0-6.0); HEMATOCRIT 32 % (39-51); HEMOGLOBIN 10.9 g/dL (13.5-17.5); LYMPHOCYTES # (AUTO) 1.9 K/uL (0.8-4.8); LYMPHOCYTES % (AUTO) 18.4 % (20.0-44.0); MEAN CORPUSCULAR HEMOGLOBIN 28 PG (26.0-33.0); MEAN CORPUSCULAR HGB CONC 34 g/dl (31.0-36.0); MEAN CORPUSCULAR VOLUME 83 fL (80-96); MONOCYTES # (AUTO) 0.7 K/uL (0.1-1.30); NEUTROPHILS # (AUTO) 7.5 K/uL (1.8-8.9); NEUTROPHILS % (AUTO) 72.9 % (43.0-81.0); PLATELET COUNT (AUTO) 274 K/uL (150-450); RED BLOOD CELL COUNT(AUTO) 3.84 MIL/uL (4.5-6.0); RED CELL DISTRIBUTION WIDTH 16.3 % (11.5-15.0); WHITE BLOOD COUNT (AUTO) 10.4 K/uL (4.3-11.0)
[2023-09-26 06:59] LABS: CALCIUM, SERUM 9.2 mg/dL (8.5-10.1); CREATININE 0.8 mg/dL (0.6-1.3); MAGNESIUM 1.6 mg/dL (1.8-2.4); PHOSPHORUS 3.9 mg/dL (2.5-4.9); POTASSIUM 3.9 mmol/L (3.5-5.1)
[2023-09-26 07:22] LABS: THYROID STIMULATING HORMONE 2.601 uIU/mL (0.358-3.74)
[2023-09-26] MEDS: INSULIN LISPRO/ASPART 100 UNIT/ML CARTRIDGE SQ SCH (08:00)
[2023-09-26] MEDS: PANTOPRAZOLE 40 MG TABLET.DR PO SCH (08:28)
[2023-09-26] MEDS: BLOOD SUGAR DIAGNOSTIC 1 EACH STRIP VI SCH (08:29)
[2023-09-26] MEDS: INSULIN REGULAR, HUMAN 100 UNIT/ML 3 ML VIAL SQ PRN (08:29)
[2023-09-26] MEDS: BUPROPION XL 150 MG TAB.ER.24 PO SCH (08:42)
[2023-09-26] MEDS: CHLORHEXIDINE GLUCONATE 15 ML UDC MM SCH (08:42)
[2023-09-26] MEDS: BACLOFEN (10 MG) 10 MG TABLET PO SCH (08:43)
[2023-09-26] MEDS: ZIPRASIDONE 20 MG CAPSULE PO SCH (08:43)
[2023-09-26] MEDS: METOPROLOL TARTRATE 25 MG TABLET PO SCH (08:44)
[2023-09-26] MEDS ORDERED: Medication Not On Formulary EA (Fesoterodine Fumarate (Toviaz) 4 MG) PO SCH (09:00)
[2023-09-26] MEDS ORDERED: Medication Not On Formulary EA (Icosapent Ethyl (Vascepa) 2 GM) PO SCH (09:00)
[2023-09-26] MEDS: SUMATRIPTAN SUCCINATE 100 MG TABLET PO ONE (10:00)
[2023-09-26] MEDS: LOSARTAN POTASSIUM 50 MG TABLET PO SCH (10:10)
[2023-09-26] MEDS: MAGNESIUM OXIDE 400 MG TABLET PO ONE (11:08)
[2023-09-26] MEDS: Z GUARD REMEDY 4 OZ OINT TP PRN (12:22)
[2023-09-26] MEDS: THERAHONEY GEL 1.5 OZ TUBE TP SCH (12:22)
[2023-09-26] MEDS ORDERED: MAGNESIUM OXIDE 400 MG TABLET PO ONE ×2 (13:30)
[2023-09-26 16:30] LABS: URINE SODIUM, RANDOM 21 mmol/l (40-220)
[2023-09-26] MEDS ORDERED: INSULIN GLARGINE, 100 UNIT/ML CARTRIDGE SQ SCH (17:00)
[2023-09-26] MEDS: SUMATRIPTAN SUCCINATE 25 MG TABLET PO PRN (17:31)
[2023-09-26 17:38] LABS: APPEARANCE,URINE CLEAR (CLEAR); BILIRUBIN,URINE NEGATIVE (NEGATIVE); BLOOD, URINE 1+ Ery/uL (NEGATIVE); COLOR,URINE YELLOW (YELLOW); KETONES,URINE NEGATIVE (NEGATIVE); LEUKOCYTE ESTERASE ,URINE 2+ (NEGATIVE); NITRITE, URINE POSITIVE (NEGATIVE); PROTEIN,URINE NEGATIVE (NEGATIVE); UGLUCOSE NEGATIVE (NEGATIVE); UROBILINOGEN,URINE 0.2 EU/dL (0.2)
[2023-09-26] MEDS ORDERED: INSULIN LISPRO/ASPART 100 UNIT/ML CARTRIDGE SQ SCH (18:00)
[2023-09-26 18:47] LABS: ADD URINE CULTURE YES; BACTERIA,URINE 2+ /HPF (None Seen); SQUAMOUS EPITHELIAL CELL,UR 0-2 /HPF (None Seen); WBC,URINE 21-50 /HPF (0-3)
[2023-09-26] MEDS: ATORVASTATIN 40 MG TABLET PO SCH (21:27)
[2023-09-26] MEDS: *INSULIN REGULAR(HUMULIN R)HUM 100 UNIT/ML VIAL SQ PRN (23:24)
[2023-09-27] VITALS (8 sets, daily range): BP systolic 108–176; BP diastolic 50–85; TEMP 97.3–98.6; O2SAT 98–99
[2023-09-27 08:53] LABS: CALCIUM, SERUM 9.1 mg/dL (8.5-10.1); CREATININE 0.8 mg/dL (0.6-1.3); MAGNESIUM 2.1 mg/dL (1.8-2.4); PHOSPHORUS 2.8 mg/dL (2.5-4.9); POTASSIUM 4.6 mmol/L (3.5-5.1)
[2023-09-27 09:27] LABS: THYROID STIMULATING HORMONE 2.854 uIU/mL (0.358-3.74); URIC ACID 6.9 mg/dL (2.6-7.2)
[2023-09-27] MEDS ORDERED: CEFTRIAXONE 1 G in IV D5W 50 ML IV SCH (12:00)
[2023-09-27] MEDS: MEROPENEM 500 MG in IV NS 0.9% 50 ML IV SCH (12:20)
[2023-09-27] MEDS: ARGININE/GLUTAMINE/CALCIUM BMB 1 EACH POWD.PACK PO SCH (16:13)
[2023-09-27] MEDS: PROSOURCE / PROSTAT (PYXIS) 30 ML UDC PO SCH (16:13)
[2023-09-27 17:42] LABS: OSMOLALITY,URINE 331 mOS/kg (340-1090)
[2023-09-27] MEDS: ZOLPIDEM TARTRATE 10 MG TABLET PO PRN (21:56)
[2023-09-28] MEDS: ACETAMINOPHEN 325 MG TABLET PO PRN (00:56)
[2023-09-28 04:00] VITALS: BP 108/72; TEMP 97.6; O2SAT 98
[2023-09-28 08:00] VITALS: BP 128/73; TEMP 98.6; O2SAT 99
[2023-09-28] MEDS: MULTIVIT W/MINERALS 1 TAB TABLET PO SCH (08:55)
[2023-09-28] MEDS: ZINC SULFATE 220 MG CAPSULE PO SCH (08:55)
[2023-09-28] MEDS: diphenhydrAMINE HCL ELIX 25 MG/10 ML UDC PO PRN (13:09)
[2023-09-28 17:43] VITALS: BP 136/72; TEMP 98.4; O2SAT 99
[2023-09-29] VITALS: BP 130/61; TEMP 98.9; O2SAT 99
[2023-09-29 08:00] VITALS: BP 128/72; TEMP 97.6; O2SAT 98
[2023-09-29 09:46] VITALS: O2SAT 96
[2023-09-29] MEDS: MEROPENEM 1 G in IV NS 0.9% 100 ML IV SCH (10:16)
[2023-09-29] MEDS ORDERED: ERTA1VIA IJ (12:14)
[2023-09-29 17:47] VITALS: BP 136/72; TEMP 98.4; O2SAT 99
[2023-09-30] VITALS: BP 106/64; TEMP 98.8; O2SAT 99
[2023-09-30 08:00] VITALS: BP 129/67; TEMP 98.4; O2SAT 97
[2023-09-30] MEDS: LORATADINE 10 MG TABLET PO ONE (10:53)
[2023-09-30 17:00] VITALS: BP 140/62; TEMP 97.9
== END 2023-09-30 18:08 | disposition home health service (06) | DRG 392 ==
LOC: ER 16:03 → TELE1 21:13 → MEDSG1 09-27 08:39
PROVIDERS: ADMIT Student in an Organized Health Care Education/Training Program; ATTEND Nurse Practitioner Acute Care
DX: K21.9 Gastro-esophageal reflux disease without esophagitis (principal); D68.59 Other primary thrombophilia; N39.0 Urinary tract infection, site not specified; E87.1 Hypo-osmolality and hyponatremia; Z68.43 Body mass index [BMI] 50.0-59.9, adult; E86.0 Dehydration; N31.9 Neuromuscular dysfunction of bladder, unspecified; I11.0 Hypertensive heart disease with heart failure; I50.9 Heart failure, unspecified; G89.29 Other chronic pain; E66.01 Morbid (severe) obesity due to excess calories; Z98.890 Other specified postprocedural states; Z88.5 Allergy status to narcotic agent; Z91.041 Radiographic dye allergy status; Z79.84 Long term (current) use of oral hypoglycemic drugs; Z79.4 Long term (current) use of insulin; Z79.899 Other long term (current) drug therapy; R79.89 Other specified abnormal findings of blood chemistry; D63.8 Anemia in other chronic diseases classified elsewhere; D72.829 Elevated white blood cell count, unspecified; E78.5 Hyperlipidemia, unspecified; F41.9 Anxiety disorder, unspecified; G47.33 Obstructive sleep apnea (adult) (pediatric); F32.A Depression, unspecified; G43.909 Migraine, unspecified, not intractable, without status migrainosus; G47.9 Sleep disorder, unspecified; S71.102A Unspecified open wound, left thigh, initial encounter; S71.101A Unspecified open wound, right thigh, initial encounter; X58.XXXA Exposure to other specified factors, initial encounter; Y92.9 Unspecified place or not applicable; Z74.09 Other reduced mobility; E83.42 Hypomagnesemia; L98.9 Disorder of the skin and subcutaneous tissue, unspecified; L30.8 Other specified dermatitis; Z79.82 Long term (current) use of aspirin; E86.1 Hypovolemia; E11.65 Type 2 diabetes mellitus with hyperglycemia; B96.89 Other specified bacterial agents as the cause of diseases classified elsewhere; Z93.6 Other artificial openings of urinary tract status
CPT/HCPCS: 36415; 70450-TC; 71045-TC; 80048-TC; 80061-TC; 81001; 82962-TC; 83735-TC; 83880; 83935-TC; 84100-TC; 84295-TC; 84300-TC; 84443-TC; 84484-TC; 84550-TC; 85025-TC; 94760-TC; 94799-TC; 97110-TC; 97116-TC; 97530-TC; A4223; A6403; G0378; J0780; J1170; J1200; J1650; J1815; J1885; J2185; J2405; J2765; J3030; J7030; Q0163

== ENCOUNTER 2023-11-08 05:40 | Inpatient (IN) | payer OTHER ==
[~2023-11-08] VITALS: Ht 177.8 cm; Wt 181.4 kg
[~2023-11-08 05:40] MED LIST changes: +BACL10TA PO; +CHLO473M2 MM; +ERTA1VIA IJ; +FESO4TAB PO; -INSU300I SQ; -METF-440 PO; +METF-442 PO; -METO25TA20 PO; +METO25TA6 PO
[2023-11-08] MEDS ORDERED: ONDANSETRON HCL/PF 4 MG/2 ML VIAL ONE ×2 (07:05→07:55)
[2023-11-08] MEDS ORDERED: KETOROLAC TROMETHAMINE 15 MG/ML VIAL ONE (07:05)
[2023-11-08] MEDS: IV NS 0.9% 1,000 ML BAG IV ONE (07:06)
[2023-11-08] MEDS: ONDANSETRON HCL/PF 4 MG/2 ML VIAL IVP ONE (07:07)
[2023-11-08] MEDS: KETOROLAC TROMETHAMINE 15 MG/ML VIAL IV ONE (07:07)
[2023-11-08] MEDS ORDERED: HYDROMORPHONE 1 MG/1 ML DISP.SYRIN ONE (07:55)
[2023-11-08] MEDS: ONDANSETRON HCL/PF 4 MG/2 ML VIAL IV ONE (08:01)
[2023-11-08] MEDS: HYDROMORPHONE 1 MG/1 ML DISP.SYRIN IV ONE (08:02)
[2023-11-08 08:21] LABS: BASOPHILS % (AUTO) 0.4 % (0.0-2.0); EOSINOPHILS # (AUTO) 0.1 K/uL (0.0-0.7); EOSINOPHILS % (AUTO) 1.1 % (0.0-6.0); HEMATOCRIT 35 % (39-51); HEMOGLOBIN 11.5 g/dL (13.5-17.5); LYMPHOCYTES # (AUTO) 1.2 K/uL (0.8-4.8); MEAN CORPUSCULAR HEMOGLOBIN 28 PG (26.0-33.0); MEAN CORPUSCULAR HGB CONC 33 g/dl (31.0-36.0); MEAN CORPUSCULAR VOLUME 85 fL (80-96); MONOCYTES # (AUTO) 0.6 K/uL (0.1-1.30); MONOCYTES % (AUTO) 7.7 % (2.0-12.0); NEUTROPHILS # (AUTO) 6.3 K/uL (1.8-8.9); NEUTROPHILS % (AUTO) 75.8 % (43.0-81.0); PLATELET COUNT (AUTO) 232 K/uL (150-450); RED BLOOD CELL COUNT(AUTO) 4.09 MIL/uL (4.5-6.0); RED CELL DISTRIBUTION WIDTH 16.6 % (11.5-15.0); WHITE BLOOD COUNT (AUTO) 8.2 K/uL (4.3-11.0)
[2023-11-08 08:33] LABS: CALCIUM, SERUM 9.2 mg/dL (8.5-10.1); CREATININE 0.9 mg/dL (0.6-1.3); POTASSIUM 5.2 mmol/L (3.5-5.1)
[2023-11-08 08:36] LABS: APPEARANCE,URINE CLOUDY (CLEAR); COLOR,URINE YELLOW (YELLOW); PH,URINE 6.5 (5.0-8.0); PROTEIN,URINE NEGATIVE (NEGATIVE); UGLUCOSE NEGATIVE (NEGATIVE)
[2023-11-08 08:37] LABS: ADD URINE CULTURE YES; BACTERIA,URINE Moderate /HPF (None Seen); BILIRUBIN,URINE NEGATIVE (NEGATIVE); BLOOD, URINE TRACE Ery/uL (NEGATIVE); KETONES,URINE NEGATIVE (NEGATIVE); LEUKOCYTE ESTERASE ,URINE 2+ (NEGATIVE); NITRITE, URINE NEGATIVE (NEGATIVE); RBC,URINE 0-2 /HPF (0-2); SQUAMOUS EPITHELIAL CELL,UR Rare /HPF (None Seen); UROBILINOGEN,URINE 0.2 EU/dL (0.2)
[2023-11-08 08:40] LABS: ALBUMIN 3.5 g/dL (3.4-5.0); BILIRUBIN,DIRECT 0.1 mg/dL (0.0-0.2); BILIRUBIN,TOTAL 0.3 mg/dL (0.2-1.0); TOTAL PROTEIN, SERUM 7.3 g/dL (6.4-8.2)
[2023-11-08] MEDS ORDERED: CEFTRIAXONE 1GM BAG (ER ONLY) 50 ML IV ONE (09:49)
[2023-11-08] MEDS: CEFTRIAXONE 1GM BAG (ER ONLY) 1 GM/50 ML PIGGYBACK IV ONE (09:56)
[2023-11-08] MEDS ORDERED: LORAZEPAM INJ 2 MG/ML VIAL ONE (10:57)
[2023-11-08] MEDS: LORAZEPAM 4 MG/ML VIAL IV ONE (11:08)
[2023-11-08 12:00] VITALS: BP 147/81; TEMP 98.6; O2SAT 96
[2023-11-08] MEDS ORDERED: Z GUARD REMEDY 4 OZ OINT TP PRN (12:00)
[2023-11-08] MEDS ORDERED: MAG HYDROX/AL HYDROX/SIMETH 30 ML UDC PO PRN (12:00)
[2023-11-08] MEDS ORDERED: ZOLPIDEM TARTRATE 5 MG TABLET PO PRN (12:00)
[2023-11-08] MEDS: KETOROLAC TROMETHAMINE INJ 30 MG/ML VIAL IV PRN (13:03)
[2023-11-08] MEDS: ONDANSETRON HCL/PF 4 MG/2 ML VIAL IVP PRN (13:04)
[2023-11-08] MEDS: IV NS 0.9% 1,000 ML IV PRN (13:04)
[2023-11-08] MEDS: ENOXAPARIN SODIUM 40 MG/0.4 ML DISP.SYRIN SQ SCH (13:06)
[2023-11-08] MEDS: HYDROCODONE/APAP 5/325MG TABLET PO PRN (14:54)
[2023-11-08 16:00] VITALS: BP 162/95; TEMP 98.4; O2SAT 97
[2023-11-08] MEDS: ALPRAZOLAM 0.25 MG TABLET PO PRN (16:35)
[2023-11-08] MEDS: ACETAMINOPHEN 325 MG TABLET PO PRN (17:55)
[2023-11-08] MEDS: HYDROMORPHONE 1 MG/1 ML DISP.SYRIN IV PRN (18:34)
[2023-11-08] MEDS ORDERED: DICLOFENAC TOPICAL 100 GM TUBE TP PRN (19:00)
[2023-11-08] MEDS ORDERED: INSULIN GLARGINE, 100 UNIT/ML CARTRIDGE SQ SCH (19:00)
[2023-11-08] MEDS ORDERED: DEXTROSE 50%-WATER 50 ML DISP.SYRIN IV PRN (19:00)
[2023-11-08 20:00] VITALS: BP 112/86; TEMP 98.2; O2SAT 93
[2023-11-08] MEDS ORDERED: INSULIN ASPART/LISPRO 100 UNIT/ML CARTRIDGE SQ SCH (20:17)
[2023-11-08] MEDS: ATORVASTATIN 40 MG TABLET PO SCH (22:04)
[2023-11-08] MEDS: ZIPRASIDONE 20 MG CAPSULE PO SCH (22:04)
[2023-11-08] MEDS: METOPROLOL TARTRATE 25 MG TABLET PO SCH (22:05)
[2023-11-08] MEDS: BLOOD SUGAR DIAGNOSTIC 1 EACH STRIP VI SCH (22:31)
[2023-11-08] MEDS: *INSULIN REGULAR(HUMULIN R)HUM 100 UNIT/ML VIAL SQ PRN (22:32)
[2023-11-08] MEDS: ZOLPIDEM TARTRATE 10 MG TABLET PO PRN (22:48)
[2023-11-09] MEDS: INSULIN REGULAR, HUMAN 100 UNIT/ML 3 ML VIAL SQ PRN (06:45)
[2023-11-09] MEDS: INSULIN GLARGINE, 100 UNIT/ML CARTRIDGE SQ SCH (07:00)
[2023-11-09 08:14] LABS: BASOPHILS % (AUTO) 0.5 % (0.0-2.0); EOSINOPHILS # (AUTO) 0.1 K/uL (0.0-0.7); EOSINOPHILS % (AUTO) 2.1 % (0.0-6.0); HEMATOCRIT 35 % (39-51); HEMOGLOBIN 11.8 g/dL (13.5-17.5); LYMPHOCYTES # (AUTO) 1.1 K/uL (0.8-4.8); LYMPHOCYTES % (AUTO) 15.7 % (20.0-44.0); MEAN CORPUSCULAR HEMOGLOBIN 29 PG (26.0-33.0); MEAN CORPUSCULAR HGB CONC 34 g/dl (31.0-36.0); MEAN CORPUSCULAR VOLUME 84 fL (80-96); MONOCYTES # (AUTO) 0.6 K/uL (0.1-1.30); MONOCYTES % (AUTO) 8.7 % (2.0-12.0); NEUTROPHILS # (AUTO) 5.1 K/uL (1.8-8.9); PLATELET COUNT (AUTO) 224 K/uL (150-450); RED BLOOD CELL COUNT(AUTO) 4.14 MIL/uL (4.5-6.0); RED CELL DISTRIBUTION WIDTH 16.4 % (11.5-15.0)
[2023-11-09] MEDS: BUPROPION XL 150 MG TAB.ER.24 PO SCH (08:39)
[2023-11-09] MEDS: PANTOPRAZOLE 40 MG TABLET.DR PO SCH (08:39)
[2023-11-09] MEDS: CHLORHEXIDINE GLUCONATE 15 ML UDC MM SCH (08:39)
[2023-11-09] MEDS: OXYBUTYNIN CHLORIDE 5 MG TABLET PO SCH (08:40)
[2023-11-09] MEDS: BACLOFEN (10 MG) 10 MG TABLET PO SCH (08:40)
[2023-11-09] MEDS: LOSARTAN POTASSIUM 25 MG TABLET PO SCH (08:40)
[2023-11-09] MEDS: METFORMIN 500 MG TABLET PO SCH (08:40)
[2023-11-09 08:43] VITALS: BP 158/71; TEMP 98.2; O2SAT 96
[2023-11-09] MEDS: FUROSEMIDE 40 MG TABLET PO SCH (08:48)
[2023-11-09] MEDS ORDERED: Medication Not On Formulary EA (Icosapent Ethyl (Vascepa) 2 GM) PO SCH (09:00)
[2023-11-09 09:02] LABS: CALCIUM, SERUM 9.7 mg/dL (8.5-10.1); CREATININE 0.6 mg/dL (0.6-1.3); MAGNESIUM 2.1 mg/dL (1.8-2.4); PHOSPHORUS 3.6 mg/dL (2.5-4.9); POTASSIUM 4.4 mmol/L (3.5-5.1)
[2023-11-09] MEDS: CEFTRIAXONE 1 G in IV D5W 50 ML IV SCH (09:54)
[2023-11-09 16:25] VITALS: BP 126/70; TEMP 98.4; O2SAT 96
[2023-11-09] MEDS: INSULIN LISPRO/ASPART 100 UNIT/ML CARTRIDGE SQ SCH (17:16)
[2023-11-09 20:00] VITALS: BP 129/63; TEMP 97.5; O2SAT 95
[2023-11-10 06:07] LABS: BASOPHILS # (AUTO) 0.1 K/uL (0.0-0.2); EOSINOPHILS # (AUTO) 0.3 K/uL (0.0-0.7); EOSINOPHILS % (AUTO) 4.1 % (0.0-6.0); HEMATOCRIT 34 % (39-51); HEMOGLOBIN 11.6 g/dL (13.5-17.5); LYMPHOCYTES # (AUTO) 1.4 K/uL (0.8-4.8); LYMPHOCYTES % (AUTO) 19.9 % (20.0-44.0); MEAN CORPUSCULAR HEMOGLOBIN 29 PG (26.0-33.0); MEAN CORPUSCULAR HGB CONC 34 g/dl (31.0-36.0); MEAN CORPUSCULAR VOLUME 85 fL (80-96); MONOCYTES # (AUTO) 0.7 K/uL (0.1-1.30); MONOCYTES % (AUTO) 10.1 % (2.0-12.0); NEUTROPHILS # (AUTO) 4.7 K/uL (1.8-8.9); NEUTROPHILS % (AUTO) 64.9 % (43.0-81.0); PLATELET COUNT (AUTO) 209 K/uL (150-450); RED BLOOD CELL COUNT(AUTO) 4.06 MIL/uL (4.5-6.0); RED CELL DISTRIBUTION WIDTH 16.7 % (11.5-15.0); WHITE BLOOD COUNT (AUTO) 7.3 K/uL (4.3-11.0)
[2023-11-10 07:05] LABS: CALCIUM, SERUM 8.5 mg/dL (8.5-10.1); CREATININE 0.8 mg/dL (0.6-1.3); MAGNESIUM 1.8 mg/dL (1.8-2.4); PHOSPHORUS 4.2 mg/dL (2.5-4.9); POTASSIUM 4.2 mmol/L (3.5-5.1)
[2023-11-10 08:00] VITALS: BP 166/78; TEMP 98.8; O2SAT 97
[2023-11-10 16:00] VITALS: BP 114/64; TEMP 98.8; O2SAT 96
[2023-11-10 20:00] VITALS: BP 139/65; TEMP 97.3; O2SAT 95
[2023-11-11] MEDS: ONDANSETRON HCL/PF 4 MG/2 ML VIAL IV ONE (02:23)
[2023-11-11 06:57] LABS: BASOPHILS # (AUTO) 0.1 K/uL (0.0-0.2); BASOPHILS % (AUTO) 0.7 % (0.0-2.0); EOSINOPHILS # (AUTO) 0.3 K/uL (0.0-0.7); HEMATOCRIT 35 % (39-51); HEMOGLOBIN 11.8 g/dL (13.5-17.5); LYMPHOCYTES # (AUTO) 1.6 K/uL (0.8-4.8); LYMPHOCYTES % (AUTO) 21.6 % (20.0-44.0); MEAN CORPUSCULAR HEMOGLOBIN 28 PG (26.0-33.0); MEAN CORPUSCULAR HGB CONC 34 g/dl (31.0-36.0); MEAN CORPUSCULAR VOLUME 84 fL (80-96); MONOCYTES # (AUTO) 0.7 K/uL (0.1-1.30); MONOCYTES % (AUTO) 9.1 % (2.0-12.0); NEUTROPHILS # (AUTO) 4.7 K/uL (1.8-8.9); NEUTROPHILS % (AUTO) 64.6 % (43.0-81.0); PLATELET COUNT (AUTO) 217 K/uL (150-450); RED CELL DISTRIBUTION WIDTH 16.7 % (11.5-15.0); WHITE BLOOD COUNT (AUTO) 7.3 K/uL (4.3-11.0)
[2023-11-11 07:29] LABS: CALCIUM, SERUM 9.1 mg/dL (8.5-10.1); CREATININE 0.9 mg/dL (0.6-1.3); MAGNESIUM 1.4 mg/dL (1.8-2.4)
[2023-11-11 07:50] LABS: PHOSPHORUS 3.5 mg/dL (2.5-4.9)
[2023-11-11 08:00] VITALS: BP 132/75; TEMP 99.9; O2SAT 97
[2023-11-11] MEDS: MAGNESIUM OXIDE 400 MG TABLET PO SCH (09:13)
[2023-11-11] MEDS: MAGNESIUM HYDROXIDE 30 ML UDC PO PRN (11:50)
[2023-11-11] MEDS ORDERED: CEPH-570 PO (12:16)
[2023-11-11] MEDS ORDERED: D-MA1POW MC (12:25)
[2023-11-11 16:00] VITALS: BP 143/66; TEMP 97.4; O2SAT 98
[2023-11-11 21:15] VITALS: BP 130/71; TEMP 98.6; O2SAT 94
[2023-11-11 22:20] VITALS: BP 130/71
== END 2023-11-11 23:00 | disposition home health service (06) | DRG 690 ==
LOC: ER 05:43 → MED 11:29
PROVIDERS: ADMIT Student in an Organized Health Care Education/Training Program; ATTEND Nurse Practitioner Acute Care
DX: N39.0 Urinary tract infection, site not specified (principal); E87.1 Hypo-osmolality and hyponatremia; D68.59 Other primary thrombophilia; Z68.43 Body mass index [BMI] 50.0-59.9, adult; E87.5 Hyperkalemia; E11.9 Type 2 diabetes mellitus without complications; I10 Essential (primary) hypertension; N31.9 Neuromuscular dysfunction of bladder, unspecified; G89.29 Other chronic pain; E66.01 Morbid (severe) obesity due to excess calories; Z88.5 Allergy status to narcotic agent; Z91.041 Radiographic dye allergy status; Z98.890 Other specified postprocedural states; Z79.84 Long term (current) use of oral hypoglycemic drugs; Z79.4 Long term (current) use of insulin; Z79.899 Other long term (current) drug therapy; Z74.09 Other reduced mobility; E78.5 Hyperlipidemia, unspecified; F32.A Depression, unspecified; F41.9 Anxiety disorder, unspecified; G47.9 Sleep disorder, unspecified; B96.89 Other specified bacterial agents as the cause of diseases classified elsewhere; Z87.440 Personal history of urinary (tract) infections; D63.8 Anemia in other chronic diseases classified elsewhere; G43.909 Migraine, unspecified, not intractable, without status migrainosus; K76.0 Fatty (change of) liver, not elsewhere classified
CPT/HCPCS: 36415; 80048-TC; 80076-TC; 81001; 82962-TC; 83690-TC; 83735-TC; 84100-TC; 85025-TC; 87081-TC; 87086-TC; 97110-TC; 97116-TC; 97530-TC; A4223; G0378; J0696; J1170; J1650; J1815; J1885; J2060; J2405; J7030; J7060

== ENCOUNTER 2024-01-30 06:33 | Inpatient (IN) | payer OTHER ==
[~2024-01-30] VITALS: Ht 177.8 cm; Wt 188.7 kg
[~2024-01-30 06:33] MED LIST changes: +CEPH-570 PO; +D-MA1POW MC; -ERTA1VIA IJ
[2024-01-30] MEDS: IV NS 0.9% 1,000 ML BAG IV ONE ×2 (07:34→08:30)
[2024-01-30] MEDS ORDERED: diphenhydrAMINE HCL 50 MG/ML VIAL ONE (07:37)
[2024-01-30] MEDS ORDERED: METOCLOPRAMIDE HCL 10 MG/2 ML VIAL ONE (07:37)
[2024-01-30] MEDS ORDERED: ACETAMINOPHEN ES 500 MG TABLET ONE (07:38)
[2024-01-30 07:43] LABS: BASOPHILS # (AUTO) 0.1 K/uL (0.0-0.2); BASOPHILS % (AUTO) 0.7 % (0.0-2.0); EOSINOPHILS # (AUTO) 0.1 K/uL (0.0-0.7); EOSINOPHILS % (AUTO) 0.7 % (0.0-6.0); HEMATOCRIT 36 % (39-51); HEMOGLOBIN 11.9 g/dL (13.5-17.5); LYMPHOCYTES % (AUTO) 12.8 % (20.0-44.0); MEAN CORPUSCULAR HEMOGLOBIN 27 PG (26.0-33.0); MEAN CORPUSCULAR HGB CONC 33 g/dl (31.0-36.0); MEAN CORPUSCULAR VOLUME 82 fL (80-96); MONOCYTES # (AUTO) 0.4 K/uL (0.1-1.30); MONOCYTES % (AUTO) 5.5 % (2.0-12.0); NEUTROPHILS # (AUTO) 6.5 K/uL (1.8-8.9); NEUTROPHILS % (AUTO) 80.3 % (43.0-81.0); PLATELET COUNT (AUTO) 227 K/uL (150-450); RED BLOOD CELL COUNT(AUTO) 4.34 MIL/uL (4.5-6.0); RED CELL DISTRIBUTION WIDTH 16.5 % (11.5-15.0); WHITE BLOOD COUNT (AUTO) 8.1 K/uL (4.3-11.0)
[2024-01-30] MEDS: ACETAMINOPHEN ES 500 MG TABLET PO ONE (07:49)
[2024-01-30] MEDS: diphenhydrAMINE HCL 50 MG/ML VIAL IV ONE (07:50)
[2024-01-30] MEDS: METOCLOPRAMIDE HCL 10 MG/2 ML VIAL IV ONE (07:51)
[2024-01-30 07:58] LABS: ALANINE AMINOTRANSFERASE 82 U/L (12-78); ALBUMIN 3.4 g/dL (3.4-5.0); ALKALINE PHOSPHATASE 97 U/L (46-116); ASPARTATE AMINOTRANSFERASE 34 U/L (15-37); BILIRUBIN,DIRECT 0.1 mg/dL (0.0-0.2); BILIRUBIN,TOTAL 0.4 mg/dL (0.2-1.0); CALCIUM, SERUM 9.6 mg/dL (8.5-10.1); CARBON DIOXIDE 30 mmol/L (21-32); CHLORIDE 89 mmol/L (98-107); GLUCOSE 195 mg/dL (74-106); POTASSIUM 5.3 mmol/L (3.5-5.1); SODIUM SERUM 126 mmol/L (136-145); TOTAL PROTEIN, SERUM 7.5 g/dL (6.4-8.2); UREA NITROGEN, BLOOD 32 mg/dL (7-18)
[2024-01-30 08:10] LABS: LACTIC ACID 2.3 mmol/L (0.4-2.0)
[2024-01-30 08:33] LABS: APPEARANCE,URINE CLEAR (CLEAR); BILIRUBIN,URINE NEGATIVE (NEGATIVE); BLOOD, URINE TRACE-INTA Ery/uL (NEGATIVE); COLOR,URINE YELLOW (YELLOW); KETONES,URINE NEGATIVE (NEGATIVE); LEUKOCYTE ESTERASE ,URINE 1+ (NEGATIVE); NITRITE, URINE NEGATIVE (NEGATIVE); PROTEIN,URINE NEGATIVE (NEGATIVE); UGLUCOSE NEGATIVE (NEGATIVE); UROBILINOGEN,URINE 0.2 EU/dL (0.2)
[2024-01-30] MEDS ORDERED: INSU100I14 SQ (08:45)
[2024-01-30] MEDS ORDERED: METO-358 PO (08:45)
[2024-01-30] MEDS ORDERED: INSU300I3 SQ (08:45)
[2024-01-30] MEDS ORDERED: PIOG15TA8 PO (08:45)
[2024-01-30] MEDS ORDERED: METO-357 PO (08:45)
[2024-01-30] MEDS ORDERED: OLME5TAB3 PO (08:45)
[2024-01-30 08:48] LABS: ADD URINE CULTURE YES; BACTERIA,URINE Rare /HPF (None Seen); RBC,URINE NONE SEEN /HPF (0-2); SQUAMOUS EPITHELIAL CELL,UR None Seen /HPF (None Seen)
[2024-01-30] MEDS: MEROPENEM 1 G in IV NS 0.9% 100 ML IV ONE (10:45)
[2024-01-30 11:15] VITALS: BP 156/62; TEMP 99.3; O2SAT 98
[2024-01-30] MEDS ORDERED: DEXTROSE 50%-WATER 50 ML DISP.SYRIN IV PRN (11:30)
[2024-01-30] MEDS ORDERED: Z GUARD REMEDY 4 OZ OINT TP PRN (11:30)
[2024-01-30] MEDS ORDERED: ONDANSETRON HCL/PF 4 MG/2 ML VIAL IVP PRN ×2 (11:30→13:30)
[2024-01-30] MEDS ORDERED: ZOLPIDEM TARTRATE 5 MG TABLET PO PRN (11:30)
[2024-01-30] MEDS ORDERED: ACETAMINOPHEN 325 MG TABLET PO PRN (11:30)
[2024-01-30] MEDS ORDERED: HYDROMORPHONE 1 MG/1 ML DISP.SYRIN IV PRN (12:00)
[2024-01-30] MEDS ORDERED: ZOLPIDEM TARTRATE 10 MG TABLET PO PRN (12:00)
[2024-01-30] MEDS: INSULIN REGULAR, HUMAN 100 UNIT/ML 3 ML VIAL SQ PRN (13:37)
[2024-01-30] MEDS: MEROPENEM 500 MG in IV NS 0.9% 50 ML IV SCH (13:38)
[2024-01-30] MEDS: BLOOD SUGAR DIAGNOSTIC 1 EACH STRIP IN SCH (13:38)
[2024-01-30] MEDS: DICYCLOMINE HCL INJ 20 MG/2 ML AMPUL IM PRN (13:53)
[2024-01-30] MEDS: LOSARTAN POTASSIUM 50 MG TABLET PO SCH (15:34)
[2024-01-30] MEDS: HYDROMORPHONE 1 MG/1 ML DISP.SYRIN IV PRN (15:38)
[2024-01-30 16:20] VITALS: BP 145/75; TEMP 98.2; O2SAT 100
[2024-01-30] MEDS: FUROSEMIDE 40 MG TABLET PO SCH (17:13)
[2024-01-30] MEDS: SODIUM POLYSTYRENE SULFONATE 15 G/60 ML BOTTLE PO ONE (17:16)
[2024-01-30] MEDS ORDERED: OLMESARTAN MEDOXOMIL 10 MG PO SCH (18:00)
[2024-01-30] MEDS ORDERED: INSULIN GLARGINE HUM REC ANLOG SQ SCH (18:00)
[2024-01-30 20:00] VITALS: BP 142/90; TEMP 97.9; O2SAT 95
[2024-01-30] MEDS: ZIPRASIDONE 20 MG CAPSULE PO SCH (20:06)
[2024-01-30] MEDS: IV NS 0.9% 1,000 ML IV PRN (20:16)
[2024-01-30] MEDS: ATORVASTATIN 40 MG TABLET PO SCH (21:19)
[2024-01-30] MEDS: INSULIN GLARGINE, 100 UNIT/ML CARTRIDGE SQ SCH (21:29)
[2024-01-30] MEDS: *INSULIN REGULAR(HUMULIN R)HUM 100 UNIT/ML VIAL SQ PRN (21:43)
[2024-01-31] VITALS: BP 155/66; TEMP 97.5; O2SAT 97
[2024-01-31 04:00] VITALS: BP 129/64; TEMP 98.9; O2SAT 96
[2024-01-31] MEDS ORDERED: ONDANSETRON HCL 4 MG/5 ML SOLUTION PO PRN (04:30)
[2024-01-31] MEDS ORDERED: ONDANSETRON HCL/PF 4 MG/2 ML VIAL IV PRN (05:00)
[2024-01-31] MEDS ORDERED: METOCLOPRAMIDE HCL 10 MG/2 ML VIAL IV PRN (05:30)
[2024-01-31] MEDS: MECLIZINE HCL 25 MG TABLET PO PRN (05:42)
[2024-01-31 06:59] LABS: BASOPHILS # (AUTO) 0.1 K/uL (0.0-0.2); BASOPHILS % (AUTO) 0.8 % (0.0-2.0); EOSINOPHILS # (AUTO) 0.1 K/uL (0.0-0.7); EOSINOPHILS % (AUTO) 1.3 % (0.0-6.0); HEMATOCRIT 36 % (39-51); HEMOGLOBIN 11.9 g/dL (13.5-17.5); LYMPHOCYTES # (AUTO) 1.2 K/uL (0.8-4.8); LYMPHOCYTES % (AUTO) 18.3 % (20.0-44.0); MEAN CORPUSCULAR HEMOGLOBIN 28 PG (26.0-33.0); MEAN CORPUSCULAR HGB CONC 33 g/dl (31.0-36.0); MEAN CORPUSCULAR VOLUME 83 fL (80-96); MONOCYTES # (AUTO) 0.5 K/uL (0.1-1.30); NEUTROPHILS # (AUTO) 4.8 K/uL (1.8-8.9); NEUTROPHILS % (AUTO) 71.6 % (43.0-81.0); PLATELET COUNT (AUTO) 212 K/uL (150-450); RED CELL DISTRIBUTION WIDTH 16.8 % (11.5-15.0); WHITE BLOOD COUNT (AUTO) 6.7 K/uL (4.3-11.0)
[2024-01-31 07:16] LABS: ALBUMIN 3.2 g/dL (3.4-5.0); BILIRUBIN,TOTAL 0.3 mg/dL (0.2-1.0); CALCIUM, SERUM 9.2 mg/dL (8.5-10.1); CREATININE 0.9 mg/dL (0.6-1.3); MAGNESIUM 1.7 mg/dL (1.8-2.4); PHOSPHORUS 3.1 mg/dL (2.5-4.9); POTASSIUM 4.6 mmol/L (3.5-5.1); TOTAL PROTEIN, SERUM 7.2 g/dL (6.4-8.2)
[2024-01-31 08:00] VITALS: BP 133/76; TEMP 98.1; O2SAT 96
[2024-01-31] MEDS: METOPROLOL SUCCINATE 50 MG TAB.SR.24H PO SCH (08:36)
[2024-01-31] MEDS: BUPROPION XL 150 MG TAB.ER.24 PO SCH (08:37)
[2024-01-31] MEDS: INSULIN GLARGINE, 100 UNIT/ML CARTRIDGE SQ SCH (08:43)
[2024-01-31] MEDS ORDERED: OLMESARTAN MEDOXOMIL PO SCH (09:00)
[2024-01-31] MEDS ORDERED: INSULIN GLARGINE HUM REC ANLOG SQ SCH (09:00)
[2024-01-31 09:29] LABS: THYROID STIMULATING HORMONE 3.83 uIU/mL (0.358-3.74)
[2024-01-31] MEDS: ONDANSETRON HCL/PF 4 MG/2 ML VIAL IV PRN (09:52)
[2024-01-31] MEDS: MAGNESIUM OXIDE 400 MG TABLET PO ONE (10:31)
[2024-01-31 12:00] VITALS: BP 121/71; TEMP 98.1; O2SAT 95
[2024-01-31 16:00] VITALS: BP 139/67; TEMP 97.7; O2SAT 100
[2024-01-31 20:00] VITALS: BP 149/68; TEMP 98.6; O2SAT 95
[2024-02-01 04:00] VITALS: BP 120/57; TEMP 98.1; O2SAT 98
[2024-02-01] MEDS: MAG HYDROX/AL HYDROX/SIMETH 30 ML UDC PO PRN (05:56)
[2024-02-01] MEDS: MAGNESIUM HYDROXIDE 30 ML UDC PO PRN (05:58)
[2024-02-01 06:43] LABS: BASOPHILS % (AUTO) 0.5 % (0.0-2.0); EOSINOPHILS # (AUTO) 0.2 K/uL (0.0-0.7); EOSINOPHILS % (AUTO) 2.3 % (0.0-6.0); HEMATOCRIT 36 % (39-51); HEMOGLOBIN 11.9 g/dL (13.5-17.5); LYMPHOCYTES # (AUTO) 1.5 K/uL (0.8-4.8); LYMPHOCYTES % (AUTO) 21.3 % (20.0-44.0); MEAN CORPUSCULAR HEMOGLOBIN 27 PG (26.0-33.0); MEAN CORPUSCULAR HGB CONC 33 g/dl (31.0-36.0); MEAN CORPUSCULAR VOLUME 83 fL (80-96); MONOCYTES # (AUTO) 0.6 K/uL (0.1-1.30); MONOCYTES % (AUTO) 8.2 % (2.0-12.0); NEUTROPHILS # (AUTO) 4.7 K/uL (1.8-8.9); NEUTROPHILS % (AUTO) 67.7 % (43.0-81.0); PLATELET COUNT (AUTO) 204 K/uL (150-450); RED BLOOD CELL COUNT(AUTO) 4.32 MIL/uL (4.5-6.0); RED CELL DISTRIBUTION WIDTH 16.8 % (11.5-15.0)
[2024-02-01 07:01] LABS: ALBUMIN 3.1 g/dL (3.4-5.0); BILIRUBIN,TOTAL 0.4 mg/dL (0.2-1.0); CALCIUM, SERUM 9.3 mg/dL (8.5-10.1); CREATININE 0.9 mg/dL (0.6-1.3); MAGNESIUM 1.7 mg/dL (1.8-2.4); PHOSPHORUS 3.4 mg/dL (2.5-4.9); POTASSIUM 4.8 mmol/L (3.5-5.1); TOTAL PROTEIN, SERUM 7.1 g/dL (6.4-8.2)
[2024-02-01 08:12] VITALS: BP 136/58; TEMP 97.7; O2SAT 97
[2024-02-01] MEDS: Magnesium 1GM/D5W 100ML PREMIX 100 ML IV SCH (08:54)
[2024-02-01] MEDS ORDERED: Magnesium 1GM/D5W 100ML PREMIX 100 ML IV SCH (09:00)
[2024-02-01] MEDS ORDERED: IV NS 0.9% 250 ML IV ONE (13:50)
[2024-02-01] MEDS ORDERED: CT SWABBABLE VALVE TRANS SET 1 EA INFUS.SET MC ONE (13:50)
[2024-02-01] MEDS ORDERED: IOHEXOL-350 100 ML VIAL IV ONE (13:50)
[2024-02-01 16:17] VITALS: BP 150/71; TEMP 98.6; O2SAT 97
[2024-02-01 20:00] VITALS: BP 148/82; TEMP 98.3; O2SAT 97
[2024-02-01 22:00] VITALS: BP 148/82; TEMP 98.3; O2SAT 97
[2024-02-01 22:48] VITALS: O2SAT 99
[2024-02-02] MEDS ORDERED: oxyCODONE HCL SR 10MG TAB.SR.12H PO PRN (06:30)
[2024-02-02] MEDS ORDERED: NALOXONE HCL 0.4 MG/ML AMPUL IV PRN (06:30)
[2024-02-02 08:00] VITALS: BP_SYST 112; BP_SYST 125; BP_SYST 150; BP_DIAS 51; BP_DIAS 63; BP_DIAS 85; TEMP 97.5; O2SAT 100; O2SAT 97; O2SAT 99
[2024-02-02] MEDS: oxyCODONE IR immediate release 5 MG TABLET PO PRN (08:57)
[2024-02-02] MEDS: THERAHONEY GEL 1.5 OZ TUBE TP SCH (11:54)
[2024-02-02] MEDS: HYDROMORPHONE 1 MG/1 ML DISP.SYRIN IV PRN (12:44)
[2024-02-02 16:00] VITALS: BP 130/85; TEMP 98.7; O2SAT 99
[2024-02-02] MEDS ORDERED: ONDANSETRON HCL/PF 8 MG in IV D5W 50 ML IVP ONE (16:00)
[2024-02-02] MEDS ORDERED: Magnesium 1 GM/2 ML VIAL IV ONE (16:00)
[2024-02-02 16:11] LABS: *SPE A/G RATIO 0.9 (0.7-1.7); *SPE ALBUMIN 3.1 g/dL (2.9-4.4); *SPE ALPHA-1-GLOBULIN 0.3 g/dL (0.0-0.4); *SPE BETA GLOBULIN 1.4 g/dL (0.7-1.3); *SPE GLOBULIN, TOTAL 3.4 g/dL (2.2-3.9); *SPE M-SPIKE Not Observed g/dL (Not Observed); *SPE PROTEIN TOTAL 6.5 g/dL (6.0-8.5); *SPEGAMMA GLOBULIN 0.7 g/dL (0.4-1.8)
[2024-02-02] MEDS ORDERED: Magnesium 1GM/D5W 100ML PREMIX 100 ML IV SCH (17:00)
[2024-02-02] MEDS: Magnesium 1GM/D5W 100ML PREMIX 100 ML IV SCH (17:11)
[2024-02-02] MEDS: DIVALPROEX SODIUM 250 MG TABLET.DR PO ONE (17:11)
[2024-02-02] MEDS: SUMATRIPTAN SUCCINATE 100 MG TABLET PO ONE (17:11)
[2024-02-02] MEDS: ONDANSETRON HCL/PF 4 MG/2 ML VIAL IV ONE (17:15)
[2024-02-02 18:00] VITALS: BP 128/78; TEMP 97.9; O2SAT 96
[2024-02-02 20:00] VITALS: BP 146/77; TEMP 98.1; O2SAT 99
[2024-02-02 22:00] VITALS: BP 146/77; TEMP 98.1; O2SAT 99
[2024-02-03 08:00] VITALS: BP 130/78; TEMP 99.3; O2SAT 96
[2024-02-03] MEDS ORDERED: CEPH-570 PO (11:47)
[2024-02-03 16:00] VITALS: BP 155/83; TEMP 98.1; O2SAT 95
[2024-02-03 18:00] VITALS: BP 158/83; TEMP 98.1; O2SAT 95
== END 2024-02-03 19:19 | disposition home health service (06) | DRG 689 ==
LOC: ER 06:33 → TELE-TD 10:30 → MEDSG1 12:42
PROVIDERS: ADMIT Internal Medicine; ATTEND Internal Medicine
DX: N39.0 Urinary tract infection, site not specified (principal); E43 Unspecified severe protein-calorie malnutrition; L89.893 Pressure ulcer of other site, stage 3; E87.1 Hypo-osmolality and hyponatremia; D68.59 Other primary thrombophilia; N17.9 Acute kidney failure, unspecified; Z68.43 Body mass index [BMI] 50.0-59.9, adult; E87.20 Acidosis, unspecified; D63.8 Anemia in other chronic diseases classified elsewhere; E11.40 Type 2 diabetes mellitus with diabetic neuropathy, unspecified; E78.5 Hyperlipidemia, unspecified; E86.0 Dehydration; E87.5 Hyperkalemia; F41.9 Anxiety disorder, unspecified; G89.4 Chronic pain syndrome; Z79.899 Other long term (current) drug therapy; Z87.440 Personal history of urinary (tract) infections; Z79.4 Long term (current) use of insulin; N31.9 Neuromuscular dysfunction of bladder, unspecified; Z79.84 Long term (current) use of oral hypoglycemic drugs; G43.909 Migraine, unspecified, not intractable, without status migrainosus; I10 Essential (primary) hypertension; F32.A Depression, unspecified; G47.33 Obstructive sleep apnea (adult) (pediatric); E87.70 Fluid overload, unspecified; E66.01 Morbid (severe) obesity due to excess calories; E83.42 Hypomagnesemia; E88.09 Other disorders of plasma-protein metabolism, not elsewhere classified
CPT/HCPCS: 36415; 70450-TC; 70496-TC; 70498-TC; 71045-TC; 80048-TC; 80053-TC; 80061-TC; 80076-TC; 81001; 82962-TC; 83605-TC; 83735-TC; 84100-TC; 84155; 84165; 84439-TC; 84443-TC; 84484-TC; 85025-TC; 87040-TC; 94760-TC; 94799-TC; 97110-TC; 97116-TC; 97530-TC; A4223; A6403; G0378; J0500; J1170; J1200; J1815; J2185; J2405; J2765; J3475; J3490; J7030; J7050; J8597; Q9967

== ENCOUNTER 2024-02-18 08:33 | Inpatient (IN) | payer OTHER ==
[~2024-02-18] VITALS: Ht 162.6 cm; Wt 181.4 kg
[~2024-02-18 08:33] MED LIST changes: -BACL10TA PO; -D-MA1POW MC; +METO-357 PO; +METO-358 PO; -METO25TA6 PO; +OLME5TAB3 PO; +PIOG15TA8 PO
[2024-02-18] MEDS: ONDANSETRON HCL/PF 4 MG/2 ML VIAL IVP ONE (08:54)
[2024-02-18] MEDS ORDERED: ONDANSETRON HCL/PF 4 MG/2 ML VIAL ONE (08:54)
[2024-02-18] MEDS: MORPHINE SULFATE INJ 2 MG/ML DISP.SYRIN IV ONE (08:55)
[2024-02-18] MEDS ORDERED: MORPHINE SULFATE INJ 4 MG/ML DISP.SYRIN ONE (08:55)
[2024-02-18 09:04] LABS: BASOPHILS % (AUTO) 0.2 % (0.0-2.0); EOSINOPHILS # (AUTO) 0.1 K/uL (0.0-0.7); EOSINOPHILS % (AUTO) 0.8 % (0.0-6.0); HEMATOCRIT 34 % (39-51); HEMOGLOBIN 11.4 g/dL (13.5-17.5); LYMPHOCYTES # (AUTO) 1.2 K/uL (0.8-4.8); LYMPHOCYTES % (AUTO) 12.9 % (20.0-44.0); MEAN CORPUSCULAR HEMOGLOBIN 28 PG (26.0-33.0); MEAN CORPUSCULAR HGB CONC 34 g/dl (31.0-36.0); MEAN CORPUSCULAR VOLUME 82 fL (80-96); MONOCYTES # (AUTO) 0.7 K/uL (0.1-1.30); MONOCYTES % (AUTO) 7.2 % (2.0-12.0); NEUTROPHILS # (AUTO) 7.6 K/uL (1.8-8.9); NEUTROPHILS % (AUTO) 78.9 % (43.0-81.0); PLATELET COUNT (AUTO) 234 K/uL (150-450); RED BLOOD CELL COUNT(AUTO) 4.12 MIL/uL (4.5-6.0); WHITE BLOOD COUNT (AUTO) 9.7 K/uL (4.3-11.0)
[2024-02-18 09:17] LABS: CREATININE 1.1 mg/dL (0.6-1.3); POTASSIUM 4.7 mmol/L (3.5-5.1)
[2024-02-18] MEDS: IV NS 0.9% 100 ML IV ONE (10:15)
[2024-02-18] MEDS ORDERED: DEXTROSE 50%-WATER 50 ML DISP.SYRIN IV PRN (11:00)
[2024-02-18] MEDS ORDERED: INSULIN LISPRO SQ SCH ×2 (11:00)
[2024-02-18] MEDS ORDERED: hydrALAZINE HCL IV 20 MG VIAL IV PRN (11:00)
[2024-02-18] MEDS: MORPHINE SULFATE INJ 2 MG/ML DISP.SYRIN IV PRN (11:08)
[2024-02-18 11:40] LABS: MAGNESIUM 1.7 mg/dL (1.8-2.4); PHOSPHORUS 3.9 mg/dL (2.5-4.9)
[2024-02-18 11:51] LABS: POTASSIUM 4.9 mmol/L (3.5-5.1)
[2024-02-18 11:54] LABS: THYROID STIMULATING HORMONE 3.69 uIU/mL (0.358-3.74); URIC ACID 7.6 mg/dL (2.6-7.2)
[2024-02-18] MEDS: BLOOD SUGAR DIAGNOSTIC 1 EACH STRIP IN SCH (13:32)
[2024-02-18] MEDS: ONDANSETRON HCL/PF 4 MG/2 ML VIAL IVP PRN (15:20)
[2024-02-18 15:59] LABS: CREATININE 0.8 mg/dL (0.6-1.3); POTASSIUM 4.7 mmol/L (3.5-5.1)
[2024-02-18 16:03] VITALS: O2SAT 98
[2024-02-18] MEDS: IPRATROPIUM NEB FS 0.5 MG/2.5 ML AMPUL.NEB NEB SCH (16:03)
[2024-02-18 16:16] VITALS: O2SAT 98
[2024-02-18 16:17] VITALS: O2SAT 98
[2024-02-18 16:19] VITALS: BP 125/66; TEMP 98.3; O2SAT 96
[2024-02-18] MEDS ORDERED: Medication Not On Formulary EA (Icosapent Ethyl (Vascepa) 2 GM) PO SCH (17:00)
[2024-02-18] MEDS: CHLORHEXIDINE GLUCONATE 15 ML UDC MM SCH (17:22)
[2024-02-18] MEDS: MAGNESIUM OXIDE 400 MG TABLET PO ONE (17:23)
[2024-02-18] MEDS: OXYBUTYNIN CHLORIDE 5 MG TABLET PO SCH (17:23)
[2024-02-18] MEDS: LOSARTAN POTASSIUM 50 MG TABLET PO SCH (17:23)
[2024-02-18] MEDS: PANTOPRAZOLE 40 MG TABLET.DR PO SCH (17:23)
[2024-02-18] MEDS: FUROSEMIDE 40 MG TABLET PO SCH (17:23)
[2024-02-18] MEDS: INSULIN ASPART/LISPRO 100 UNIT/ML CARTRIDGE SQ SCH (17:54)
[2024-02-18] MEDS: INSULIN GLARGINE, 100 UNIT/ML CARTRIDGE SQ SCH (17:56)
[2024-02-18] MEDS ORDERED: INSULIN GLARGINE, 100 UNIT/ML CARTRIDGE SQ SCH (18:00)
[2024-02-18] MEDS ORDERED: INSULIN ASPART/LISPRO 100 UNIT/ML CARTRIDGE SQ SCH (18:00)
[2024-02-18] MEDS: IV NS 0.9% 1,000 ML IV ONE (18:47)
[2024-02-18] MEDS ORDERED: MECLIZINE HCL 12.5 MG TABLET PO PRN (19:00)
[2024-02-18] MEDS: MECLIZINE HCL 25 MG TABLET PO PRN (19:36)
[2024-02-18 20:00] VITALS: BP 132/62; TEMP 97.9; O2SAT 96
[2024-02-18] MEDS: ATORVASTATIN 40 MG TABLET PO SCH (21:32)
[2024-02-18] MEDS: HEPARIN SODIUM, PORCINE 5000 UNITS/1 ML VIAL SQ SCH (21:33)
[2024-02-19] VITALS (10 sets, daily range): BP systolic 115–159; BP diastolic 58–83; TEMP 97.3–98.4; O2SAT 95–100
[2024-02-19] MEDS: METOCLOPRAMIDE HCL 10 MG/2 ML VIAL IV ONE (00:48)
[2024-02-19] MEDS: ZOLPIDEM TARTRATE 10 MG TABLET PO PRN (00:48)
[2024-02-19 04:44] LABS: BASOPHILS % (AUTO) 0.3 % (0.0-2.0); EOSINOPHILS % (AUTO) 0.5 % (0.0-6.0); HEMATOCRIT 34 % (39-51); HEMOGLOBIN 11.3 g/dL (13.5-17.5); LYMPHOCYTES # (AUTO) 1.1 K/uL (0.8-4.8); LYMPHOCYTES % (AUTO) 12.4 % (20.0-44.0); MEAN CORPUSCULAR HEMOGLOBIN 28 PG (26.0-33.0); MEAN CORPUSCULAR HGB CONC 34 g/dl (31.0-36.0); MEAN CORPUSCULAR VOLUME 82 fL (80-96); MONOCYTES # (AUTO) 0.6 K/uL (0.1-1.30); MONOCYTES % (AUTO) 6.5 % (2.0-12.0); NEUTROPHILS # (AUTO) 6.8 K/uL (1.8-8.9); NEUTROPHILS % (AUTO) 80.3 % (43.0-81.0); PLATELET COUNT (AUTO) 227 K/uL (150-450); RED BLOOD CELL COUNT(AUTO) 4.08 MIL/uL (4.5-6.0); RED CELL DISTRIBUTION WIDTH 16.8 % (11.5-15.0); WHITE BLOOD COUNT (AUTO) 8.5 K/uL (4.3-11.0)
[2024-02-19 05:11] LABS: ALBUMIN 3.5 g/dL (3.4-5.0); BILIRUBIN,TOTAL 0.4 mg/dL (0.2-1.0); CALCIUM, SERUM 9.1 mg/dL (8.5-10.1); CREATININE 0.9 mg/dL (0.6-1.3); MAGNESIUM 1.8 mg/dL (1.8-2.4); PHOSPHORUS 3.1 mg/dL (2.5-4.9); POTASSIUM 4.7 mmol/L (3.5-5.1)
[2024-02-19] MEDS: INSULIN REGULAR, HUMAN 100 UNIT/ML 3 ML VIAL SQ PRN (06:28)
[2024-02-19] MEDS: BUPROPION XL 150 MG TAB.ER.24 PO SCH (08:19)
[2024-02-19] MEDS: METOPROLOL SUCCINATE 50 MG TAB.SR.24H PO SCH ×3 (08:22→17:03)
[2024-02-19] MEDS: ZIPRASIDONE 20 MG CAPSULE PO SCH (08:23)
[2024-02-19] MEDS ORDERED: Medication Not On Formulary EA (Fesoterodine Fumarate (Toviaz) 4 MG) PO SCH (09:00)
[2024-02-19] MEDS ORDERED: OLMESARTAN MEDOXOMIL PO SCH (09:00)
[2024-02-19] MEDS: IV Sodium Chloride 3% 500 ML 500 ML IV SCH (09:18)
[2024-02-19] MEDS: INSULIN GLARGINE, 100 UNIT/ML CARTRIDGE SQ SCH (09:19)
[2024-02-19] MEDS: Z GUARD REMEDY 4 OZ OINT TP SCH (10:18)
[2024-02-19] MEDS: ONDANSETRON HCL/PF 4 MG/2 ML VIAL IVP PRN (10:21)
[2024-02-19 11:26] LABS: APPEARANCE,URINE CLEAR (CLEAR); BILIRUBIN,URINE NEGATIVE (NEGATIVE); BLOOD, URINE 1+ Ery/uL (NEGATIVE); COLOR,URINE YELLOW (YELLOW); KETONES,URINE NEGATIVE (NEGATIVE); LEUKOCYTE ESTERASE ,URINE 2+ (NEGATIVE); NITRITE, URINE POSITIVE (NEGATIVE); PH,URINE 6.5 (5.0-8.0); PROTEIN,URINE NEGATIVE (NEGATIVE); UGLUCOSE NEGATIVE (NEGATIVE); UROBILINOGEN,URINE 0.2 EU/dL (0.2)
[2024-02-19 11:42] LABS: BACTERIA,URINE Moderate /HPF (None Seen)
[2024-02-19 11:43] LABS: ADD URINE CULTURE YES
[2024-02-19 11:44] LABS: SQUAMOUS EPITHELIAL CELL,UR None Seen /HPF (None Seen)
[2024-02-19] MEDS: ACETAMINOPHEN 325 MG TABLET PO PRN (20:00)
[2024-02-20] VITALS (10 sets, daily range): BP systolic 118–141; BP diastolic 49–65; TEMP 98.1–99; O2SAT 94–100
[2024-02-20] MEDS: MEROPENEM 1 G in IV NS 0.9% 100 ML IV SCH (08:47)
[2024-02-20] MEDS: POLYETHYLENE GLYCOL 3350 17 GM POWD.PACK PO SCH (09:52)
[2024-02-20] MEDS: DOCUSATE SODIUM 100 MG CAPSULE PO SCH (09:52)
[2024-02-20] MEDS: ALBUTEROL FS 2.5 MG/0.5 ML VIAL.NEB IH PRN (22:59)
[2024-02-21] VITALS (15 sets, daily range): BP systolic 110–142; BP diastolic 48–87; TEMP 97.7–100; O2SAT 94–99
[2024-02-22] VITALS (10 sets, daily range): BP systolic 112–134; BP diastolic 54–66; TEMP 98.2–99.5; O2SAT 94–100
[2024-02-22] MEDS: DICLOFENAC TOPICAL 100 GM TUBE TP PRN (08:51)
[2024-02-22] MEDS: Z GUARD REMEDY 4 OZ OINT TP PRN (09:28)
[2024-02-22] MEDS: LACTULOSE 10 G/15 ML UDC (PYXIS) PO STA (11:04)
[2024-02-23] VITALS (14 sets, daily range): BP systolic 109–139; BP diastolic 58–67; TEMP 97.7–98.8; O2SAT 93–100
[2024-02-23] MEDS: MAGNESIUM HYDROXIDE 30 ML UDC PO PRN (00:51)
[2024-02-23] MEDS: MINERAL OIL 133 ML (PYXIS) 1 EA ENEMA RC STA ×2 (09:27→17:28)
[2024-02-23] MEDS: LACTULOSE 10 G/15 ML UDC (PYXIS) PO SCH (09:27)
[2024-02-23 17:44] LABS: BASOPHILS # (AUTO) 0.1 K/uL (0.0-0.2); BASOPHILS % (AUTO) 1.2 % (0.0-2.0); EOSINOPHILS # (AUTO) 0.2 K/uL (0.0-0.7); EOSINOPHILS % (AUTO) 2.7 % (0.0-6.0); HEMATOCRIT 37 % (39-51); HEMOGLOBIN 12.1 g/dL (13.5-17.5); LYMPHOCYTES # (AUTO) 1.3 K/uL (0.8-4.8); LYMPHOCYTES % (AUTO) 19.3 % (20.0-44.0); MEAN CORPUSCULAR HEMOGLOBIN 27 PG (26.0-33.0); MEAN CORPUSCULAR HGB CONC 33 g/dl (31.0-36.0); MEAN CORPUSCULAR VOLUME 83 fL (80-96); MONOCYTES # (AUTO) 0.6 K/uL (0.1-1.30); MONOCYTES % (AUTO) 9.2 % (2.0-12.0); NEUTROPHILS # (AUTO) 4.6 K/uL (1.8-8.9); NEUTROPHILS % (AUTO) 67.6 % (43.0-81.0); PLATELET COUNT (AUTO) 210 K/uL (150-450); RED BLOOD CELL COUNT(AUTO) 4.48 MIL/uL (4.5-6.0); WHITE BLOOD COUNT (AUTO) 6.8 K/uL (4.3-11.0)
[2024-02-23 17:57] LABS: CALCIUM, SERUM 9.9 mg/dL (8.5-10.1); CREATININE 0.8 mg/dL (0.6-1.3)
[2024-02-23 18:02] LABS: ALBUMIN 3.3 g/dL (3.4-5.0); BILIRUBIN,TOTAL 0.4 mg/dL (0.2-1.0); TOTAL PROTEIN, SERUM 7.2 g/dL (6.4-8.2)
[2024-02-23 18:06] LABS: LACTIC ACID 1.6 mmol/L (0.4-2.0)
[2024-02-23] MEDS: ALBUTEROL FS 2.5 MG/0.5 ML VIAL.NEB IH SCH (19:59)
[2024-02-24] VITALS (17 sets, daily range): BP systolic 97–153; BP diastolic 55–73; TEMP 97.7–98.4; O2SAT 93–100
[2024-02-24] MEDS: NA PHOS,M-B/NA PHOS,DI-BA 1 EA ENEMA RC PRN (13:19)
[2024-02-24] MEDS: PEG 3350/NA SULF,BICARB,CL/KCL 4,000 ML BOTTLE PO ONE (15:37)
[2024-02-25] VITALS (13 sets, daily range): BP systolic 104–152; BP diastolic 56–83; TEMP 97.7–98.4; O2SAT 90–100
[2024-02-25 09:26] LABS: BASOPHILS % (AUTO) 0.6 % (0.0-2.0); EOSINOPHILS # (AUTO) 0.2 K/uL (0.0-0.7); EOSINOPHILS % (AUTO) 2.6 % (0.0-6.0); HEMATOCRIT 34 % (39-51); HEMOGLOBIN 11.6 g/dL (13.5-17.5); LYMPHOCYTES # (AUTO) 1.2 K/uL (0.8-4.8); LYMPHOCYTES % (AUTO) 18.7 % (20.0-44.0); MEAN CORPUSCULAR HEMOGLOBIN 28 PG (26.0-33.0); MEAN CORPUSCULAR HGB CONC 34 g/dl (31.0-36.0); MEAN CORPUSCULAR VOLUME 83 fL (80-96); MONOCYTES # (AUTO) 0.5 K/uL (0.1-1.30); MONOCYTES % (AUTO) 7.6 % (2.0-12.0); NEUTROPHILS # (AUTO) 4.4 K/uL (1.8-8.9); NEUTROPHILS % (AUTO) 70.5 % (43.0-81.0); PLATELET COUNT (AUTO) 192 K/uL (150-450); RED BLOOD CELL COUNT(AUTO) 4.14 MIL/uL (4.5-6.0); RED CELL DISTRIBUTION WIDTH 16.7 % (11.5-15.0); WHITE BLOOD COUNT (AUTO) 6.2 K/uL (4.3-11.0)
[2024-02-25 09:40] LABS: CALCIUM, SERUM 9.8 mg/dL (8.5-10.1); CREATININE 0.7 mg/dL (0.6-1.3); POTASSIUM 4.6 mmol/L (3.5-5.1)
[2024-02-26] VITALS (10 sets, daily range): BP systolic 115–127; BP diastolic 62–74; TEMP 98.2–98.4; O2SAT 94–100
[2024-02-26 06:35] LABS: BASOPHILS # (AUTO) 0.1 K/uL (0.0-0.2); BASOPHILS % (AUTO) 0.8 % (0.0-2.0); EOSINOPHILS # (AUTO) 0.2 K/uL (0.0-0.7); EOSINOPHILS % (AUTO) 3.2 % (0.0-6.0); HEMATOCRIT 35 % (39-51); HEMOGLOBIN 11.4 g/dL (13.5-17.5); LYMPHOCYTES # (AUTO) 1.3 K/uL (0.8-4.8); LYMPHOCYTES % (AUTO) 19.5 % (20.0-44.0); MEAN CORPUSCULAR HEMOGLOBIN 27 PG (26.0-33.0); MEAN CORPUSCULAR HGB CONC 33 g/dl (31.0-36.0); MEAN CORPUSCULAR VOLUME 83 fL (80-96); MONOCYTES # (AUTO) 0.6 K/uL (0.1-1.30); MONOCYTES % (AUTO) 9.1 % (2.0-12.0); NEUTROPHILS # (AUTO) 4.4 K/uL (1.8-8.9); NEUTROPHILS % (AUTO) 67.4 % (43.0-81.0); PLATELET COUNT (AUTO) 189 K/uL (150-450); RED BLOOD CELL COUNT(AUTO) 4.17 MIL/uL (4.5-6.0); RED CELL DISTRIBUTION WIDTH 16.6 % (11.5-15.0); WHITE BLOOD COUNT (AUTO) 6.6 K/uL (4.3-11.0)
[2024-02-26 06:57] LABS: CALCIUM, SERUM 9.4 mg/dL (8.5-10.1); CREATININE 0.7 mg/dL (0.6-1.3); POTASSIUM 4.2 mmol/L (3.5-5.1)
[2024-02-26] MEDS ORDERED: FURO-144 PO (09:31)
== END 2024-02-26 14:30 | disposition home health service (06) | DRG 641 ==
LOC: ER 09:01 → MED 12:50 → TELE 16:02
PROVIDERS: ADMIT Internal Medicine; ATTEND Internal Medicine
DX: E86.1 Hypovolemia (principal); D68.59 Other primary thrombophilia; Z68.44 Body mass index [BMI] 60.0-69.9, adult; E87.1 Hypo-osmolality and hyponatremia; E86.9 Volume depletion, unspecified; N31.9 Neuromuscular dysfunction of bladder, unspecified; E11.65 Type 2 diabetes mellitus with hyperglycemia; E11.40 Type 2 diabetes mellitus with diabetic neuropathy, unspecified; I10 Essential (primary) hypertension; G89.4 Chronic pain syndrome; E66.01 Morbid (severe) obesity due to excess calories; Z98.890 Other specified postprocedural states; Z88.1 Allergy status to other antibiotic agents; Z91.041 Radiographic dye allergy status; Z79.4 Long term (current) use of insulin; Z79.84 Long term (current) use of oral hypoglycemic drugs; Z79.899 Other long term (current) drug therapy; Z87.440 Personal history of urinary (tract) infections; Z86.19 Personal history of other infectious and parasitic diseases; D63.8 Anemia in other chronic diseases classified elsewhere; G43.909 Migraine, unspecified, not intractable, without status migrainosus; E78.5 Hyperlipidemia, unspecified; F32.A Depression, unspecified; Z74.09 Other reduced mobility; T50.2X5A Adverse effect of carbonic-anhydrase inhibitors, benzothiadiazides and other diuretics, initial encounter; Y92.9 Unspecified place or not applicable; F41.9 Anxiety disorder, unspecified; R79.89 Other specified abnormal findings of blood chemistry
CPT/HCPCS: 36415; 36600; 70450-TC; 71045-TC; 72125-TC; 80048-TC; 80053-TC; 81001; 82533; 82803-TC; 82962-TC; 83605-TC; 83735-TC; 83935-TC; 84100-TC; 84295-TC; 84300-TC; 84443-TC; 84550-TC; 85025-TC; 87086-TC; 94760-TC; 94762-TC; 94799-TC; 97110-TC; 97116-TC; 97164; 97530-TC; A4223; A6403; G0378; J1644; J1815; J2185; J2270; J2405; J2765; J3490; J7030; J7050; J8597